=== PATIENT | male | born 1985 | race Caucasian/White ===

== ENCOUNTER 2020-09-17 09:06 | Outpatient (CLI) | payer BC ==
[2020-09-17 09:30] LABS: HCT - HEMATOCRIT 45.9 % (42.0-52.0); HGB - HEMOGLOBIN 15.5 g/dL (14.0-18.0); MEAN CORPUSCULAR HEMOGLOBIN 29.8 pg (27.0-31.0); MEAN CORPUSCULAR HGB CONC 33.8 g/dL (32.0-36.0); MEAN CORPUSCULAR VOLUME 88.3 fL (80.0-94.0); MEAN PLATELET VOLUME 9.8 fL (7.4-11.4); RED BLOOD COUNT 5.2 10^6/uL (4.70-6.10); RED CELL DISTRIBUTION WIDTH 12.5 % (12.0-15.0)
[2020-09-17 09:36] LABS: CALCIUM 9.2 mg/dL (8.5-10.3); CREATININE 1.2 mg/dL (0.6-1.2); POTASSIUM 4.2 mmol/L (3.5-5.0)
[2020-09-17 09:41] LABS: PROTEIN/CREATININE RATIO,URINE 0.1 (<=0.2)
== END 2020-09-17 09:07 | disposition home or self-care (01) ==
LOC: LAB 09:06
PROVIDERS: ATTEND Internal Medicine Nephrology
DX: N05.9 Unspecified nephritic syndrome with unspecified morphologic changes (principal); D70.9 Neutropenia, unspecified; D63.1 Anemia in chronic kidney disease; R80.9 Proteinuria, unspecified
CPT/HCPCS: 36415; 80048; 82570; 84156; 85027

== ENCOUNTER 2020-09-20 13:17 | Outpatient (CLI) | payer BC ==
--- NOTE | 2020-09-20 15:41 | CT Report ---
PROCEDURE: Abdomen/Pelvis WO INDICATIONS: HEMATURIA TECHNIQUE: Noncontrast 5 mm thick sections acquired from the diaphragms to the symphysis. 5 mm coronal and sagi ttal reformats were then performed. For radiation dose reduction, the following was used: automated exposure control, adjustment of mA and/or kV according to patient size. COMPARISON: None. FINDINGS: Image quality: Excellent. ABDOMEN: These images demonstrate numerous hepatic and renal cysts of varying size and complexity, findings co nsistent with autosomal dominant polycystic kidney disease. The largest renal cyst on the right measu res approximately 7 cm. The largest renal cyst on the left measures approximately 4 cm. In the absenc e of IV contrast evaluation of the cysts and adjacent renal parenchyma is limited. There is no hydrou reteronephrosis or urinary tract calculus demonstrated. The urinary bladder is unremarkable. The remaining unenhanced solid abdominal viscera are within normal limits. No abnormally dilated or o bviously thickened loop of bowel. No pericolonic or mesenteric inflammatory changes. Nonaneurysmal ab dominal aorta. No threshold enlarged retroperitoneal, pelvic, or inguinal lymph node. Degenerative changes L5-S1. No acute or suspicious osseous lesion. Included portions of the lung bases are clear. IMPRESSION: Findings consistent with autosomal dominant polycystic kidney disease. Renal protocol contrast enhanced CT or MRI should be considered for further evaluation of the cysts a nd renal parenchyma to exclude a suspicious complex cyst or solid mass, given the hematuria. Reviewed by: Jose Daniel Morrell MD on 09/20/2020 3:40 PM PDT Approved by: Jose Daniel Morrell MD on 09/20/2020 3:40 PM PDT Station ID: [id number]
== END 2020-09-20 13:18 | disposition home or self-care (01) ==
LOC: DI 13:17
PROVIDERS: ATTEND Specialist
DX: R31.9 Hematuria, unspecified (principal); Q61.2 Polycystic kidney, adult type

== ENCOUNTER 2020-11-17 08:00 | Outpatient (CLI) | payer BC | END 2020-11-17 23:59 | disposition home or self-care (01) | LOC: LAB.N 08:00 | PROVIDERS: ATTEND Family Medicine | DX: D49.4 Neoplasm of unspecified behavior of bladder (principal); R30.0 Dysuria | CPT/HCPCS: 87086 ==

== ENCOUNTER 2020-12-08 05:05 | Emergency (ER) | payer BC ==
--- OUTSIDE RECORDS SUMMARY | 2020-12-08 05:09 | EXTERNAL MEDICAL SUMMARY RPT | Continuity of Care Document ---
:1985 Demographics Phone Unavailable Preferred Language Wolof Marital Status Unknown Protestant Affiliation Unknown Race Unknown Ethnic Group Unknown Author Organization [place] Address [address] [phone] Phone Care Team Providers Name Role Phone Horras Unavailable Unavailable Horras Unavailable Unavailable Allergies Encounters Medications date description facility [id number] Trazodone Hydrochloride 50 MG Oral [facility] [id number] Trazodone Hydrochloride 50 MG Oral [facility] 02456251 Phenazopyridine hydrochloride 200 MG Or al [facility] 57256966 Phenazopyridine hydrochloride 200 MG Or al [facility] [id number] 24 HR Oxybutynin chloride 10 MG Extende d [facility] [id number] Phenazopyridine hydrochloride 200 MG Or al [facility] [id number] Acetaminophen 325 MG / Oxycodone Hydroc hloride 5 MG [facility] Oral Tablet 25322398 24 HR Oxybutynin chloride 10 MG Extende d Release [facility] 06550101 Phenazopyridine hydrochloride 200 MG Or al [facility] 25660605 Acetaminophen 325 MG / Oxycodone Hydroc hloride 5 MG [facility] Oral Tablet 55043771 Trazodone Hydrochloride 50 MG Oral [facility] 37549596 atomoxetine 40 MG [facility] 68322286 Trazodone Hydrochloride 50 MG Oral [facility] 59686591 atomoxetine 40 MG [facility] 30682176 24 HR Methylphenidate Hydrochloride 36 MG [facility] Release Tablet 21838171 Oxycodone Hydrochloride 5 MG Oral [facility] 73461735 24 HR Methylphenidate Hydrochloride 36 MG [facility] Release Tablet 93599245 Oxycodone Hydrochloride 5 MG Oral [facility] 47909654 12 HR Bupropion Hydrochloride 100 MG Ex tended [facility] Tablet 92167251 Trazodone Hydrochloride 50 MG Oral [facility] 91343016 atomoxetine 40 MG Oral [facility] 38595866 Lisinopril 20 MG Oral Tablet [facility] 41914194 24 HR Methylphenidate Hydrochloride 36 MG [facility] Release Tablet [id number] 12 HR Bupropion Hydrochloride 100 MG Ex tended [facility] Tablet 07226527 Trazodone Hydrochloride 50 MG Oral [facility] 26865829 atomoxetine 40 MG Oral Capsule [facility] 60245804 Lisinopril 20 MG Oral Tablet [facility] 98348888 24 HR Methylphenidate Hydrochloride 36 MG [facility] Release Tablet Problems date description facility [id number] Urinary tract infection, site not [facility] [id number] Malignant neoplasm of bladder, unspecif [facility] [id number] Encounter for screening for other viral diseases [facility] [id number] Contact with and (suspected) exposure t o [address] [id number] Urinary tract infection, site not speci [facility] [id number] Sleep apnea, unspecified [facility] [id number] Other specified anxiety disorders [facility] [id number] Hyperglycemia, unspecified [facility] ital [id number] Essential (primary) hypertension [facility] Procedures date description facility [id number] [facility] [id number] [facility] [id number] [facility] [id number] [facility] [id number] [facility] [id number] [facility] [id number] [facility] [id number] [facility] [id number] [facility] [id number] [facility] [id number] [facility] [id number] [facility] [id number] [facility] [id number] [facility] [id number] [facility] [id number] [facility] 47132274 [facility] 91118197 [facility] [id number] [facility] [id number] [facility] [id number] [facility] 07593805 [facility] [id number] [facility] 32190736 [facility] 88266849 [facility] Results Vital Signs date measurement value source [id number] weight_standard 141.78 lb [id number] weight_metric 64.31 kg 20200920 temperature_standard 96.2 F 20200920 temperature_metric 35.67 C 20200920 respiration_rate 16 /min 20200920 height_standard 77 in [id number] height_metric 195.58 cm 20200920 heart_rate 62 /min 20200920 BP_systolic 122 mm[Hg] 20200920 BP_diastolic 66 mm[Hg] 20200920 BMI 37.0 kg/m2 20200926 weight_standard 136.08 lb 20200926 weight_metric 61.72 kg 20200926 height_standard 77 in 20200926 height_metric 195.58 cm 20200926 BP_systolic 145 mm[Hg] 20200926 BP_diastolic 94 mm[Hg] 20200926 BMI 35.5 kg/m2 20201003 temperature_standard 97.5 F 20201003 temperature_metric 36.39 C 20201003 heart_rate 86 /min 20201005 weight_standard 136.08 lb 20201005 weight_metric 61.72 kg 20201005 temperature_standard 97.6 F 20201005 temperature_metric 36.44 C 20201005 respiration_rate 14 /min 20201005 height_standard 77 in 20201005 height_metric 195.58 cm 20201005 heart_rate 65 /min 20201005 BP_systolic 120 mm[Hg] 20201005 BP_diastolic 82 mm[Hg] 20201005 BMI 35.5 kg/m2 20201108 weight_standard 138 lb 20201108 weight_metric 62.6 kg 20201108 temperature_standard 97.3 F 20201108 temperature_metric 36.28 C 20201108 respiration_rate 16 /min 20201108 height_standard 77 in 20201108 height_metric 195.58 cm 20201108 heart_rate 78 /min 20201108 BP_systolic 130 mm[Hg] 20201108 BP_diastolic 68 mm[Hg] 20201108 BMI 36.1 kg/m2 20201120 weight_standard 127.01 lb 20201120 weight_metric 57.61 kg 20201120 temperature_standard 98.4 F 20201120 temperature_metric 36.89 C 20201120 respiration_rate 20 /min 20201120 height_standard 77 in 20201120 height_metric 195.58 cm 10613153 heart_rate 80 /min 20201120 BP_systolic 125 mm[Hg] 20201120 BP_diastolic 91 mm[Hg] 20201120 BMI 33.2 kg/m2 20201126 weight_standard 136.53 lb 20201126 weight_metric 61.93 kg 20201126 temperature_standard 97.1 F 20201126 temperature_metric 36.17 C 20201126 respiration_rate 18 /min 20201126 height_standard 77 in 20201126 height_metric 195.58 cm 20201126 heart_rate 103 /min 20201126 BP_systolic 135 mm[Hg] 20201126 BP_diastolic 93 mm[Hg] 20201126 BMI 35.6 kg/m2 20201127 weight_standard 136.08 lb 20201127 weight_metric 61.72 kg 20201127 temperature_standard 98.8 F 20201127 temperature_metric 37.11 C 20201127 respiration_rate 16 /min 20201127 height_standard 77 in 20201127 height_metric 195.58 cm 20201127 heart_rate 108 /min 20201127 BP_systolic 154 mm[Hg] 20201127 BP_diastolic 98 mm[Hg] 20201127 BMI 35.5 kg/m2
--- OUTSIDE RECORDS SUMMARY | 2020-12-08 05:11 | EXTERNAL MEDICAL SUMMARY RPT | Continuity of Care Document ---
:1985 Demographics Phone Unavailable Preferred Language Tajik Marital Status Unknown Alevism Affiliation Unknown Race Unknown Ethnic Group Unknown Author Organization [place] Address [address] [phone] Phone Care Team Providers Name Role Phone Horras Unavailable Unavailable Horras Unavailable Unavailable Allergies Encounters Medications date description facility [id number] Trazodone Hydrochloride 50 MG Oral [facility] 79465062 Trazodone Hydrochloride 50 MG Oral [facility] 62687960 Phenazopyridine hydrochloride 200 MG Or al [facility] 00049151 Phenazopyridine hydrochloride 200 MG Or al [facility] 72006195 24 HR Oxybutynin chloride 10 MG Extende d [facility] 66855987 Phenazopyridine hydrochloride 200 MG Or al [facility] 95013211 Acetaminophen 325 MG / Oxycodone Hydroc hloride 5 MG [facility] Oral Tablet 29631150 24 HR Oxybutynin chloride 10 MG Extende d Release [facility] 03296462 Phenazopyridine hydrochloride 200 MG Or al [facility] 61781242 Acetaminophen 325 MG / Oxycodone Hydroc hloride 5 MG [facility] Oral Tablet 09603532 Trazodone Hydrochloride 50 MG Oral [facility] 98412356 atomoxetine 40 MG [facility] 10284525 Trazodone Hydrochloride 50 MG Oral [facility] 48481772 atomoxetine 40 MG [facility] 08745397 24 HR Methylphenidate Hydrochloride 36 MG [facility] Release Tablet 74733690 Oxycodone Hydrochloride 5 MG Oral [facility] 67590120 24 HR Methylphenidate Hydrochloride 36 MG [facility] Release Tablet 24602359 Oxycodone Hydrochloride 5 MG Oral [facility] 07583541 12 HR Bupropion Hydrochloride 100 MG Ex tended [facility] Tablet 45127431 Trazodone Hydrochloride 50 MG Oral [facility] 12496049 atomoxetine 40 MG Oral [facility] 45758401 Lisinopril 20 MG Oral Tablet [facility] 64651174 24 HR Methylphenidate Hydrochloride 36 MG [facility] Release Tablet 93979972 12 HR Bupropion Hydrochloride 100 MG Ex tended [facility] Tablet 55001584 Trazodone Hydrochloride 50 MG Oral [facility] 74843206 atomoxetine 40 MG Oral Capsule [facility] 84889171 Lisinopril 20 MG Oral Tablet [facility] 48994455 24 HR Methylphenidate Hydrochloride 36 MG [facility] Release Tablet Problems date description facility [id number] Urinary tract infection, site not [facility] 84282960 Malignant neoplasm of bladder, unspecif [facility] [id number] Encounter for screening for other viral diseases [facility] [id number] Contact with and (suspected) exposure t o [address] [id number] Urinary tract infection, site not speci [facility] 95129857 Sleep apnea, unspecified [facility] 51183352 Other specified anxiety disorders [facility] 07394240 Hyperglycemia, unspecified [facility] ital [id number] Essential (primary) hypertension [facility] Procedures date description facility [id number] [facility] [id number] [facility] [id number] [facility] [id number] [facility] [id number] [facility] 53762238 [facility] [id number] [facility] [id number] [facility] [id number] [facility] [id number] [facility] [id number] [facility] [id number] [facility] [id number] [facility] [id number] [facility] [id number] [facility] [id number] [facility] [id number] [facility] [id number] [facility] [id number] [facility] [id number] [facility] [id number] [facility] [id number] [facility] [phone] [facility] [id number] [facility] [id number] [facility] Results Vital Signs date measurement value source [id number] weight_standard 141.78 lb [id number] weight_metric 64.31 kg 20200920 temperature_standard 96.2 F 20200920 temperature_metric 35.67 C 20200920 respiration_rate 16 /min 20200920 height_standard 77 in [id number] height_metric 195.58 cm 20200920 heart_rate 62 /min [...] height_standard 77 in 20201120 height_metric 195.58 cm 36200525 heart_rate 80 /min 20201120 BP_systolic 125 mm[Hg] [...]
[2020-12-08] MEDS ORDERED: HYDROmorphone 1 MG/ML CARPUJECT IVP STA ×2 (05:40→07:17)
[2020-12-08] MEDS ORDERED: ONDANSETRON 4 MG/2 ML VIAL IVP STA (05:40)
[2020-12-08] MEDS ORDERED: SODIUM CHLORIDE 0.9% 1,000 ML IV STA ×2 (05:40→06:04)
[2020-12-08 06:19] LABS: BASOPHILS % (AUTO) 0.3 %; EOSINOPHILS # (AUTO) 0.1 10^3/uL (0.0-0.7); EOSINOPHILS % (AUTO) 0.9 %; HCT - HEMATOCRIT 41.8 % (42.0-52.0); HGB - HEMOGLOBIN 13.7 g/dL (14.0-18.0); LYMPHOCYTES # (AUTO) 1.5 10^3/uL (1.5-3.5); LYMPHOCYTES % (AUTO) 16.5 %; MEAN CORPUSCULAR HGB CONC 32.8 g/dL (32.0-36.0); MEAN CORPUSCULAR VOLUME 88.4 fL (80.0-94.0); MEAN PLATELET VOLUME 9.8 fL (7.4-11.4); MONOCYTES % (AUTO) 10.6 %; NEUTROPHILS # (AUTO) 6.6 10^3/uL (1.5-6.6); NEUTROPHILS % (AUTO) 71.2 %; PLT - PLATELET COUNT 210 10^3/uL (130-450); RED BLOOD COUNT 4.73 10^6/uL (4.70-6.10); RED CELL DISTRIBUTION WIDTH 12.2 % (12.0-15.0); WHITE BLOOD COUNT 9.3 x10^3/uL (4.8-10.8)
[2020-12-08 06:31] LABS: ALBUMIN 3.7 g/dL (3.2-5.5); ALBUMIN/GLOBULIN RATIO 1.1 (1.0-2.2); BILIRUBIN,TOTAL 0.8 mg/dL (0.2-1.0); CALCIUM 9.2 mg/dL (8.5-10.3); CREATININE 1.6 mg/dL (0.6-1.2); POTASSIUM 3.6 mmol/L (3.5-5.0)
[2020-12-08] MEDS ORDERED: IOVERSOL 320 100 ML VIAL IVP ONE ×2 (06:35→07:34)
--- NOTE | 2020-12-08 06:37 | ED Physician Documentation ---
History of Present Illness - Stated complaint Stated Complaint: ABD PX/MALE /DIARRHEA - Chief complaint Chief Complaint: Abd Pain - History obtained from History obtained from: Patient - Additonal information Additional information: 35-year-old man with past medical history of polycystic kidney disease status post bladder surgery for malignant tumor in September presents with chronic hematuria alongside some new onset abdominal pain, nausea vomiting and diarrhea over the past 2 to 3 days, progressively worsening, localized to the bilateral upper quadrant and radiating diffusely to the entire abdomen, 9 out of 10 upon arrival and improved after pain medication. He states that there is blood in his vomitus and there may be blood in his stool but he is unsure because he usually urinates at the same time and has chronic hematuria from the surgery. Denies fever, sick contacts, rash, back pain. Review of Systems Ten Systems: 10 systems reviewed and negative Constitutional: denies: Fever, Chills GI: reports: Abdominal Pain, Nausea, Vomiting, Diarrhea PD PAST MEDICAL HISTORY - Past Medical History Past Medical History: Yes Cardiovascular: Hypertension : Other Other Past Medical History: Polycystic Kidney disease, bladder tumor - Past Surgical History Past Surgical History: Yes - Present Medications Home Medications: Ambulatory Orders Medication Instructions Recorded Confirmed Ciprofloxacin HCl 1 tablet PO BID 10 Days #20 tablet 12/08/20 Ondansetron Odt [Zofran] 4 mg TL Q6H PRN #10 tablet 12/08/20 Oxycodone HCl/Acetaminophen 1 each PO Q4H PRN #10 tablet 12/08/20 [Percocet 10-325 mg Tablet] metroNIDAZOLE [Flagyl] 500 mg PO TID #30 tablet 12/08/20 - Allergies Allergies/Adverse Reactions: Allergies Allergy/AdvReac Type Severity Reaction Status Date / Time No Known Drug Allergies Allergy Verified 12/08/20 05:28 - Social History Does the pt smoke?: No Smoking Status: Never smoker Does the pt drink ETOH?: No Does the pt have substance abuse?: No - Immunizations Immunizations are current?: Yes PD ED PE NORMAL - Vitals Vital signs reviewed: Yes - General General: Alert and oriented X 3, No acute distress, Well developed/nourished - HEENT HEENT: Atraumatic, PERRL, EOMI - Neck Neck: Supple, no meningeal sign - Cardiac Cardiac: RRR - Respiratory Respiratory: No respiratory distress, Clear bilaterally - Abdomen Abdomen: Other (diffusely tender to palpation without guarding or rebound) - Derm Derm: Normal color - Extremities Extremities: No deformity - Neuro Neuro: Alert and oriented X 3 - Psych Psych: Normal mood, Normal affect Results - Vitals Vitals: Vital Signs - 24 hr 12/08/20 12/08/20 05:16 07:26 Temperature 37.1 C Heart Rate 107 H 93 Respiratory 20 18 Rate Blood Pressure 146/101 H 136/96 H O2 Saturation 97 95 Oxygen O2 Source Room air - Labs Labs: Laboratory Tests 12/08/20 12/08/20 12/08/20 05:57 05:57 07:00 WBC 9.3 RBC 4.73 Hgb 13.7 L Hct 41.8 L MCV 88.4 MCH 29.0 MCHC 32.8 RDW 12.2 Plt Count 210 MPV 9.8 Neut # (Auto) 6.6 Lymph # (Auto) 1.5 Menard # (Auto) 1.0 Eos # (Auto) 0.1 Baso # (Auto) 0.0 Absolute Nucleated RBC 0.00 Nucleated RBC % 0.0 Sodium 136 Potassium 3.6 Chloride 99 L Carbon Dioxide 24 Anion Gap 13.0 BUN 19 Creatinine 1.6 H Estimated GFR (MDRD) 49 L Glucose 114 H Calcium 9.2 Total Bilirubin 0.8 AST 20 ALT 25 Alkaline Phosphatase 62 Total Protein 7.0 Albumin 3.7 Globulin 3.3 Albumin/Globulin Ratio 1.1 Lipase 23 Urine Color DK. ORANGE Urine Clarity SL. CLOUDY Urine pH 5.5 Ur Specific [place] 1.020 Urine Protein >=300 H Urine Glucose (UA) NEGATIVE Urine Ketones TRACE Urine Occult Blood LARGE H Urine Nitrite NEGATIVE Urine Bilirubin NEGATIVE Urine Urobilinogen 0.2 (NORMAL) Ur Leukocyte Esterase TRACE H Urine RBC TNTC H Urine WBC 4-5 Ur Squamous Epith Cells RARE Squamous Urine Bacteria Rare Urine Yeast PRESENT Ur Microscopic Review INDICATED Urine Culture Comments INDICATED PD MEDICAL DECISION MAKING - ED course ED course: Nausea, vomiting, diarrhea,, improved after Dilaudid and Zofran. jessy c/w mild dehydration. Will obtain CT to evaluate further. Departure - Departure Disposition: 01 Home, Self Care Clinical Impression: Colitis, Nausea and vomiting, Diarrhea, JESSY (acute kidney injury) Instructions: ED Diarrhea Bacterial Prescriptions: Ciprofloxacin HCl 1 tablet PO BID 10 Days #20 tablet metroNIDAZOLE [Flagyl] 500 mg PO TID #30 tablet Oxycodone HCl/Acetaminophen [Percocet 10-325 mg Tablet] 1 each PO Q4H PRN #10 tablet PRN Reason: Pain Ondansetron Odt [Zofran] 4 mg TL Q6H PRN #10 tablet PRN Reason: Nausea / Vomiting Comments: You were seen in the emergency department for nausea, vomiting and diarrhea. Your lab work is showing mild dehydration with creatinine of 1.6 on kidney function testing. Your CT showed segmental colitis involving the ascending colon, which means that you have an infection in your intestines. This is likely causing your symptoms. Your urine had some blood and white blood cells in it which could possibly be inflammatory versus infectious. The antibiotics I am prescribing will cover urinary tract infection in addition to colitis. Ple ase follow-up with your primary doctor as well as your urologist this week. Return to the emergency department if you experience any new or worsening symptoms or have other concerns.
[2020-12-08 07:15] LABS: GLUCOSE, URINE (UA) NEGATIVE (NEGATIVE); KETONES,URINE (UA) TRACE mg/dL (NEGATIVE); LEUKOCYTE ESTERASE, URINE TRACE (NEGATIVE); NITRITE,URINE NEGATIVE (NEGATIVE); OCCULT BLOOD,URINE LARGE (NEGATIVE); PH,URINE 5.5 PH (5.0-7.5); PROTEIN,URINE >=300 mg/dL (NEGATIVE); UROBILINOGEN,URINE 0.2 (NORMAL) E.U./dL (NORMAL)
[2020-12-08 07:24] LABS: BACTERIA,URINE Rare /HPF (None Seen); BILIRUBIN,URINE NEGATIVE (NEGATIVE); CLARITY,URINE SL. CLOUDY (CLEAR); ICTOTEST,URINE NEGATIVE; RBC,URINE TNTC /HPF (0-5); SQUAMOUS EPITHELIAL CELL,UR RARE Squamous (<= Few); YEAST,URINE PRESENT
[2020-12-08 09:15] VITALS: BP 135/91
--- NOTE | 2020-12-08 10:12 | CT Report ---
PROCEDURE: Abdomen/Pelvis W INDICATIONS: severe diffuse abd pain, hx bladder surg CONTRAST: IV CONTRAST: Optiray 320 ml: 100 PO CONTRAST: *NO PO CONTRAST TECHNIQUE: After the administration of nonionic contrast, 5 mm thick sections acquired from the diaphragms to th e symphysis. 5 mm thick coronal and sagittal reformats were acquired. For radiation dose reduction, the following was used: automated exposure control, adjustment of mA and/or kV according to patient size. COMPARISON: Prior CT 09/21/2020 reviewed. Appears normal. FINDINGS: Image quality: Excellent. ABDOMEN: Lung bases: Lung bases are clear. Heart size is normal. Solid organs: Liver and spleen are normal in size and enhancement except for numerous water density simple appearing hepatic cysts. Gallbladder appears normal Biliary system is non dilated. Pancreas enhances normally. No adrenal nodules. Kidneys demonstrate normal size and enhancement, without hy dronephrosis. Numerous renal cortical cysts are present. The combined appearance is consistent with adult polycystic hepatorenal disease. Peritoneum and bowel: Bowel loops demonstrate normal wall thickness and caliber. No free fluid or a ir. Nodes and vessels: No retroperitoneal or mesenteric adenopathy by size criteria. Aorta and inferior vena cava are normal in size. Miscellaneous: No ventral hernias. PELVIS: Genitourinary: Bladder wall thickness is normal except for anteriorly superiorly there is bladder wa ll thickening and adjacent mild edema.. Miscellaneous: No inguinal hernias or adenopathy. There is abnormal colonic wall thickening involvi ng the cecum and proximal ascending colon. This area appeared entirely normal on the recent prior CT scan. Bones: No suspicious bony lesions. No vertebral body compression fractures. IMPRESSION: The clinical history indicates bladder surgery reportedly for some form of bladder neopl asm. Postoperative changes are present in that area as discussed above. No malignant appearing findings are currently present without benefit [facility]. Colitis is the presumed cause at the cecum and proximal ascen ding colon considering the normality of appearance of that area on that prior CT scan. Reviewed by: Raúl Conley MD on 12/08/2020 9:11 AM JAMES Approved by: Raúl Conley MD on 12/08/2020 9:11 AM JAMES Station ID: [id number]
== END 2020-12-08 09:17 | disposition home or self-care (01) ==
LOC: ED 05:05
DX: K52.9 Noninfective gastroenteritis and colitis, unspecified (principal); N17.9 Acute kidney failure, unspecified; R31.9 Hematuria, unspecified; E86.0 Dehydration; Q61.3 Polycystic kidney, unspecified; I10 Essential (primary) hypertension; Z85.51 Personal history of malignant neoplasm of bladder
CPT/HCPCS: 36415; 74177; 80053; 81001; 83690; 85025; 87086; 96361; 96374; 96375; 96376; 99284; J1170; Q9967; 81003

== ENCOUNTER 2021-04-15 17:02 | Emergency (ER) | payer BC ==
--- NOTE | 2021-04-15 17:26 | ED Physician Documentation ---
PD HPI CHEST PAIN - Stated complaint Stated Complaint: CHEST PX - Chief complaint Chief Complaint: Cardiac - History obtained from History obtained from: Patient - History of Present Illness Timing - onset: How many hours ago (07/07), Today Timing - onset during: Exertion (he states he has been doing house and yard chores the past few days. Today was moving/lifting a reclining chair and had abrupt onset of left sharp chest pain, associated with lightheaded. He says he got pale and sweaty when pain started and near syncope.) Timing - details: Abrupt onset, Still present Quality: Aching, Sharp, Pain. No: Tearing, Stabbing Location: Left chest Radiation: Back, Left upper extremity Worsened by: Movement, Palpation (left pectoral area). No: Exertion, Inspiration Associated symptoms: Shortness of air, Diaphoresis, Nausea, Feeling faint / dizzy Similar symptoms before: Has not had sx before Recently seen: Not recently seen Review of Systems Constitutional: denies: Fever, Chills Nose: denies: Rhinorrhea / runny nose, Congestion Throat: denies: Sore throat Cardiac: denies: Pedal edema, Calf pain Respiratory: denies: Cough GI: denies: Abdominal Pain, Nausea, Vomiting Skin: denies: Rash, Lesions Neurologic: reports: Generalized weakness. denies: Focal weakness, Numbness PD PAST MEDICAL HISTORY - Past Medical History Cardiovascular: Hypertension Respiratory: None Neuro: None Endocrine/Autoimmune: None : Other - Past Surgical History Past Surgical History: Yes - Present Medications Home Medications: Ambulatory Orders Medication Instructions Recorded Confirmed Ciprofloxacin HCl 1 tablet PO BID 10 Days #20 tablet 12/08/20 Ondansetron Odt [Zofran] 4 mg TL Q6H PRN #10 tablet 12/08/20 Oxycodone HCl/Acetaminophen 1 each PO Q4H PRN #10 tablet 12/08/20 [Percocet 10-325 mg Tablet] metroNIDAZOLE [Flagyl] 500 mg PO TID #30 tablet 12/08/20 HYDROcod/ACETAM 5/325 [[place]rae [place] 5/325] 1 - 2 ea PO Q6H PRN #15 tablet 04/15/21 - Allergies Allergies/Adverse Reactions: Allergies Allergy/AdvReac Type Severity Reaction Status Date / Time No Known Drug Allergies Allergy Verified 04/15/21 17:10 - Social History Does the pt smoke?: No Smoking Status: Never smoker Does the pt drink ETOH?: No Does the pt have substance abuse?: No - Family History Family history: reports: CAD. denies: Aortic aneursym, Aortic dissection - Immunizations Immunizations are current?: Yes PD ED PE NORMAL - Vitals Vital signs reviewed: Yes - General General: Alert and oriented X 3, Well developed/nourished, Other (appears in pain, pale and sweaty. ) - Neck Neck: Supple, no meningeal sign, No adenopathy - Cardiac Cardiac: RRR, No murmur - Respiratory Respiratory: Clear bilaterally, Other (left pectoral area with muscular tenderness. No rash nor sores. ) - Abdomen Abdomen: Soft, Non tender - Back Back: No CVA TTP - Derm Derm: Normal color, Warm and dry - Extremities Extremities: No edema, No calf tenderness / cord - Neuro Neuro: Alert and oriented X 3, No motor deficit, Normal speech Results - Vitals Vitals: Vital Signs - 24 hr 04/15/21 04/15/21 04/15/21 17:10 17:52 19:04 Temperature 36.9 C Heart Rate 103 H 91 82 Respiratory 19 20 14 Rate Blood Pressure 138/100 H 130/91 H 135/82 H O2 Saturation 98 96 99 Oxygen O2 Source Room air - EKG (time done) 17:10 Rate: Rate (enter#) (93) Rhythm: NSR [place]: Normal Intervals: Normal [place] QRS: Normal Ischemia: Normal ST segments. No: ST elevation c/w ischemia, ST depression - Labs Labs: Laboratory Tests 04/15/21 04/15/21 04/15/21 17:20 17:20 17:20 WBC 9.0 RBC 5.28 Hgb 16.0 Hct 46.5 MCV 88.1 MCH 30.3 MCHC 34.4 RDW 12.5 Plt Count 306 MPV 9.7 Neut # (Auto) 5.3 Lymph # (Auto) 3.0 [place] # (Auto) 0.5 Eos # (Auto) 0.1 Baso # (Auto) 0.1 Absolute Nucleated RBC 0.00 Nucleated RBC % 0.0 Sodium 135 Potassium 3.9 Chloride 101 Carbon Dioxide 24 Anion Gap 10.0 BUN 22 H Creatinine 1.3 H Estimated GFR (MDRD) 62 L Glucose 110 H Calcium 9.5 Total Bilirubin 1.0 AST 31 ALT 38 Alkaline Phosphatase 62 Troponin I High Sens 2.9 Total Protein 7.5 Albumin 4.5 Globulin 3.0 Albumin/Globulin Ratio 1.5 Lipase 31 - Rads (name of study) chest xray Radiology: Prelim report reviewed (normal), See rad report PD MEDICAL DECISION MAKING - ED course Complexity details: reviewed results, considered differential, d/w patient Departure - Departure Disposition: 01 Home, Self Care Clinical Impression: Left-sided chest pain Condition: Stable Record reviewed to determine appropriate education?: Yes Instructions: ED Strain Chest Wall Follow-Up: KRYSTAL LONGORIA MD [Primary Care Provider] - Prescriptions: HYDROcod/ACETAM 5/325 [Mcrae [place] 5/325] 1 - 2 ea PO Q6H PRN #15 tablet PRN Reason: Pain Comments: Your EKG, chest x-ray, blood tests are good without any signs of heart attack or heart injury, collapsed lung or pneumonia, blood sugar abnormality or electrolyte problems. Your heart rhythm was normal here as well. Your symptoms were certainly concerning for something more significant but no findings on the testing. You do have chest wall tenderness so presume a muscle strain that also affected your blood pressure temporarily causing the sweating and lightheadedness etc. Tylenol or ibuprofen as needed for pains. Add hydrocodone if needed for worse pain. I would anticipate improvement in the chest muscle pain over the next few days. Activity as tolerated regarding work lifting another activity. Recheck if not improved over the next several days and return if worse or other symptoms. [facility] in [place]. Discharge Date/Time: 04/15/21 19:05
[2021-04-15 17:35] LABS: BASOPHILS # (AUTO) 0.1 10^3/uL (0.0-0.1); BASOPHILS % (AUTO) 0.6 %; EOSINOPHILS # (AUTO) 0.1 10^3/uL (0.0-0.7); EOSINOPHILS % (AUTO) 1.1 %; HCT - HEMATOCRIT 46.5 % (42.0-52.0); LYMPHOCYTES % (AUTO) 33.1 %; MEAN CORPUSCULAR HEMOGLOBIN 30.3 pg (27.0-31.0); MEAN CORPUSCULAR HGB CONC 34.4 g/dL (32.0-36.0); MEAN CORPUSCULAR VOLUME 88.1 fL (80.0-94.0); MEAN PLATELET VOLUME 9.7 fL (7.4-11.4); MONOCYTES # (AUTO) 0.5 10^3/uL (0.0-1.0); MONOCYTES % (AUTO) 5.7 %; NEUTROPHILS # (AUTO) 5.3 10^3/uL (1.5-6.6); NEUTROPHILS % (AUTO) 59.3 %; PLT - PLATELET COUNT 306 10^3/uL (130-450); RED BLOOD COUNT 5.28 10^6/uL (4.70-6.10); RED CELL DISTRIBUTION WIDTH 12.5 % (12.0-15.0)
[2021-04-15] MEDS ORDERED: KETOROLAC 30 MG/ML VIAL IVP STA (17:38)
[2021-04-15] MEDS ORDERED: ACETAMINOPHEN 325 MG TABLET PO STA (17:38)
[2021-04-15] MEDS ORDERED: SODIUM CHLORIDE 0.9% 1,000 ML IV STA (17:38)
[2021-04-15 17:50] LABS: ALBUMIN 4.5 g/dL (3.2-5.5); ALBUMIN/GLOBULIN RATIO 1.5 (1.0-2.2); CALCIUM 9.5 mg/dL (8.5-10.3); CREATININE 1.3 mg/dL (0.6-1.2); POTASSIUM 3.9 mmol/L (3.5-5.0); TOTAL PROTEIN 7.5 g/dL (6.7-8.2)
--- NOTE | 2021-04-15 17:52 | XRAY Report ---
PROCEDURE: Chest 1 View X-Ray INDICATIONS: Chest pain TECHNIQUE: One view of the chest was acquired. COMPARISON: None FINDINGS: Surgical changes and devices: None. Lungs and pleura: No pleural effusions or pneumothorax. Lungs are clear. Mediastinum: Mediastinal contours appear normal. Heart size is normal. Bones and chest wall: No suspicious bony lesions. Overlying soft tissues appear unremarkable. IMPRESSION: No acute cardiopulmonary findings Reviewed by: Yash Craig MD on 04/15/2021 4:50 PM AKDT Approved by: Yash Craig MD on 04/15/2021 4:50 PM AKDT Station ID: [id number]
[2021-04-15 19:05] VITALS: BP 135/82
== END 2021-04-15 19:05 | disposition home or self-care (01) ==
LOC: ED 17:02
DX: R07.89 Other chest pain (principal); I10 Essential (primary) hypertension
CPT/HCPCS: 36415; 71045; 80053; 83690; 84484; 85025; 93005; 96374; 99284; A9270

== ENCOUNTER 2021-09-24 12:23 | Emergency (ER) | payer BC, OTHER ==
--- NOTE | 2021-09-24 12:58 | ED Physician Documentation ---
PD HPI FOCAL NEURO - Stated complaint Stated Complaint: R SIDE,LEG WEAKNESS - Chief complaint Chief Complaint: Neuro - History obtained from History obtained from: Patient - History of Present Illness Timing - onset: How many days ago (5-6) Timing - duration: Days (5-6) Timing - details: Gradual onset, Still present Severity of deficit: Moderate Weakness: Hand, Leg, Foot, Right Numbness: Hand, Leg, Foot, Right Associated symptoms: Other (He states he did have a "stomach flu" about 2 weeks ago with nausea vomiting and diarrhea for about a day to day and a half and then improved.). No: Headache, Nausea / vomiting, Syncope, Head injury Baseline status: positive: A&OX3, ambulatory, indep Similar symptoms before: Has not had sx before Recently seen: Clinic (Seen by neurology in [facility] for vertigo in the past. Had physical therapy ordered and has been getting that.) Review of Systems Constitutional: denies: Fever, Chills Nose: denies: Rhinorrhea / runny nose, Congestion Throat: denies: Sore throat Respiratory: denies: Cough GI: reports: Nausea, Vomiting (1 1/2 weeks ago for 1-2 days.), Diarrhea. denies: Abdominal Pain Skin: denies: Rash, Lesions Neurologic: reports: Generalized weakness (He does feel general weakness on both sides but predominantly on the right progressing over 5 to 6 days, initially right leg, now also right arm.). denies: Altered mental status, Headache, Head injury PD PAST MEDICAL HISTORY - Past Medical History Past Medical History: Yes Cardiovascular: Hypertension Respiratory: None Neuro: None Endocrine/Autoimmune: None : Other Psych: Depression, ADD/ADHD - Past Surgical History Past Surgical History: Yes - Allergies Allergies/Adverse Reactions: Allergies Allergy/AdvReac Type Severity Reaction Status Date / Time No Known Drug Allergies Allergy Verified 09/24/21 12:30 - Social History Does the pt smoke?: No Smoking Status: Never smoker Does the pt drink ETOH?: No Does the pt have substance abuse?: No - Immunizations Immunizations are current?: Yes PD ED PE NORMAL - Vitals Vital signs reviewed: Yes - General General: Alert and oriented X 3, No acute distress, Well developed/nourished - HEENT HEENT: Atraumatic, PERRL, EOMI, Pharynx benign - Neck Neck: Supple, no meningeal sign, No adenopathy - Cardiac Cardiac: RRR, No murmur - Respiratory Respiratory: No respiratory distress, Clear bilaterally - Abdomen Abdomen: Soft, Non tender - Male Male : Deferred - Rectal Rectal: Deferred - Back Back: No CVA TTP - Derm Derm: Normal color, Warm and dry - Neuro Neuro: Alert and oriented X 3, 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 Mild to moderate weakness in the right arm. Faint weakness perhaps of the left arm and leg.Decrease sensation to touch and pinprick on the right leg and some in the right arm.) Eye Opening: Spontaneous Motor: Obeys Commands Verbal: Oriented GCS Score: 15 - Psych Psych: Normal mood, Normal affect NIHSS - Level of Consciousness Level of consciousness: (0) Alert, Keenly responsive LOC Questions: (0) Answers both Q's correct LOC Commands: (0) Performs both correctly - Gaze Best Gaze: (0) Normal - Visual Visual: (0) No loss - Facial Palsy Facial Palsy: (0) Normal, symmetrical movement - Motor Arms (both separate) Motor Arm (right): (1) Drift Motor Arm (left): (0) No drift - Motor Legs (both separate) Motor Leg (right): (1) Drift Motor Leg (left): (0) No drift - Limb Ataxia Limb Ataxia: (0) Absent - Sensory Sensory: (1) Qnzu-hp-onnepcks loss - Best Language Best Language: (0) No aphasia - Dysarthria Dysarthria: (0) Normal - Extinction and Inattention (formally neg Extinction and inattention: (0) No abnormality - Total Score/Results Total Score/Result: 3 Results - Vitals Vitals: Vital Signs - 24 hr 09/24/21 09/24/21 09/24/21 12:30 14:33 16:00 Temperature 36.6 C 36.4 C L 36.6 C Heart Rate 100 90 85 Respiratory 18 21 16 Rate Blood Pressure 147/100 H 148/107 H 151/107 H O2 Saturation 99 98 98 09/24/21 09/24/21 18:00 20:00 Temperature 36.4 C L 36.3 C L Heart Rate 88 85 Respiratory 16 16 Rate Blood Pressure 145/95 H 143/92 H O2 Saturation 98 99 Oxygen O2 Source Room air - Labs Labs: Laboratory Tests 09/24/21 09/24/21 09/24/21 12:48 12:48 12:48 WBC 8.6 RBC 5.66 Hgb 16.8 Hct 50.0 MCV 88.3 MCH 29.7 MCHC 33.6 RDW 12.7 Plt Count 321 MPV 10.2 Neut # (Auto) 5.1 Lymph # (Auto) 2.8 [place] # (Auto) 0.6 Eos # (Auto) 0.1 Baso # (Auto) 0.1 Absolute Nucleated RBC 0.00 Nucleated RBC % 0.0 ESR 1 Sodium 136 Potassium 4.1 Chloride 101 Carbon Dioxide 25 Anion Gap 10.0 BUN 21 H Creatinine 1.2 Estimated GFR (MDRD) 68 L Glucose 119 H Calcium 9.3 Magnesium 2.0 Total Bilirubin 0.9 AST 21 ALT 30 Alkaline Phosphatase 62 Total Protein 7.7 Albumin 4.5 Globulin 3.2 Albumin/Globulin Ratio 1.4 Lipase 35 - Rads (name of study) brain MRI Radiology: Prelim report reviewed (No acute process.), See rad report PD MEDICAL DECISION MAKING - ED course Complexity details: re-evaluated patient, considered differential (The patient has had progressive weakness feeling both sides but predominantly on the right over 5 to 6 days. Concern for MS versus bleed or tumor versus Guillain-Marlow or other neurologic disorder), d/w patient, d/w net developer consultant (I talked with neurology at [facility] for his neurologist who thought possible spine MS or atypical Guillain-Marlow may be suspected. Suggest LP and lumbar MRI and possibly IVIG. However we do not have this on formulary and may be more prudent to have transfer for neuro consult.) Departure - Departure Disposition: 02 Transfer Acute Care Hosp Clinical Impression: Right sided weakness, General weakness Condition: Stable Record reviewed to determine appropriate education?: Yes
--- OUTSIDE RECORDS SUMMARY | 2021-09-24 13:09 | EXTERNAL MEDICAL SUMMARY RPT | Continuity of Care Document ---
:1985 Author Organization [facility] Address [address] [place] [address] Phone Allergies No information. Encounters No information. Medications No information. Problems Procedures date description facility [id number] General Physician [facility] [id number] Finding [facility] [id number] Diagnosis [facility] Results No information. Vital Signs date measurement value source [id number] weight_standard 136.08 lb [id number] weight_metric 61.72 kg [id number] respiration_rate 16 /min [id number] height_standard 77 in [id number] height_metric 195.58 cm [id number] heart_rate 97 /min [id number] BP_systolic 132 mm[Hg] [id number] BP_diastolic 79 mm[Hg] [id number] BMI 35.5 kg/m2
[2021-09-24] MEDS ORDERED: SODIUM CHLORIDE 0.9% 1,000 ML IV STA (13:37)
[2021-09-24 13:50] LABS: BASOPHILS # (AUTO) 0.1 10^3/uL (0.0-0.1); BASOPHILS % (AUTO) 0.6 %; EOSINOPHILS # (AUTO) 0.1 10^3/uL (0.0-0.7); EOSINOPHILS % (AUTO) 1.4 %; HGB - HEMOGLOBIN 16.8 g/dL (14.0-18.0); LYMPHOCYTES # (AUTO) 2.8 10^3/uL (1.5-3.5); LYMPHOCYTES % (AUTO) 31.9 %; MEAN CORPUSCULAR HEMOGLOBIN 29.7 pg (27.0-31.0); MEAN CORPUSCULAR HGB CONC 33.6 g/dL (32.0-36.0); MEAN CORPUSCULAR VOLUME 88.3 fL (80.0-94.0); MEAN PLATELET VOLUME 10.2 fL (7.4-11.4); MONOCYTES # (AUTO) 0.6 10^3/uL (0.0-1.0); MONOCYTES % (AUTO) 7.2 %; NEUTROPHILS # (AUTO) 5.1 10^3/uL (1.5-6.6); NEUTROPHILS % (AUTO) 58.6 %; PLT - PLATELET COUNT 321 10^3/uL (130-450); RED BLOOD COUNT 5.66 10^6/uL (4.70-6.10); RED CELL DISTRIBUTION WIDTH 12.7 % (12.0-15.0); WHITE BLOOD COUNT 8.6 x10^3/uL (4.8-10.8)
[2021-09-24 13:58] LABS: ALBUMIN 4.5 g/dL (3.2-5.5); ALBUMIN/GLOBULIN RATIO 1.4 (1.0-2.2); BILIRUBIN,TOTAL 0.9 mg/dL (0.2-1.0); CALCIUM 9.3 mg/dL (8.5-10.3); CREATININE 1.2 mg/dL (0.6-1.2); POTASSIUM 4.1 mmol/L (3.5-5.0); TOTAL PROTEIN 7.7 g/dL (6.7-8.2)
--- NOTE | 2021-09-24 15:51 | MRI Report ---
PROCEDURE: Brain W/O INDICATIONS: Right arm and leg weakness. TECHNIQUE: Noncontrast axial T1 spin echo, axial T2 fast spin echo, sagittal and axial FLAIR, coronal T2 fast sp in echo, axial gradient echo, axial diffusion and ADC through the brain. COMPARISON: None. FINDINGS: No restricted diffusion to indicate a recent ischemia. The major intracranial vascular flow-related s ignal voids are maintained. No abnormal intracranial susceptibility, mass effect, or midline shift. P atent ventricular system and basilar cisterns. Midline structures are normal in configuration. No johanna ss orbital abnormality. Paranasal sinuses and mastoid air cells are predominantly clear. IMPRESSION: No acute or otherwise significant intracranial abnormality. Reviewed by: Jose Daniel Morrell MD on 09/24/2021 3:49 PM PDT Approved by: Jose Daniel Morrell MD on 09/24/2021 3:49 PM PDT Station ID: [id number]
--- NOTE | 2021-09-24 21:16 | ED Physician Documentation ---
ED Addendum - Addendum Addendum: 09/24/21 21:16 Patient is accepted to [facility] by BOZENA Lees, hospitalist. COBRA forms completed. Departure - Departure Disposition: 02 Transfer Acute Care Hosp Clinical Impression: Right sided weakness, General weakness Condition: Stable
[2021-09-24 21:28] LABS: B. PARAPERTUSSIS- RESP PCR PAN NOT DETECTED; B. PERTUSSIS- RESP PCR PANEL NOT DETECTED; C. PNEUMONIAE- RESP PCR PANEL NOT DETECTED; CORONAVIRUS 229E-RESP PCR NOT DETECTED; CORONAVIRUS HKU1-RESP PCR NOT DETECTED; CORONAVIRUS NL63-RESP PCR NOT DETECTED; CORONAVIRUS OC43-RESP PCR NOT DETECTED; HUMAN METAPNEUMOVIRUS NOT DETECTED; INFLUENZA A- RESP PCR PANEL NOT DETECTED; INFLUENZA B - RESP PCR PANEL NOT DETECTED; M. PNEUMONIAE- RESP PCR PANEL NOT DETECTED; PARAINFLUENZA VIRUS 1 NOT DETECTED; PARAINFLUENZA VIRUS 2 NOT DETECTED; PARAINFLUENZA VIRUS 3 NOT DETECTED; PARAINFLUENZA VIRUS 4 NOT DETECTED; RHINOVIRUS/ENTEROVIRUS NOT DETECTED; RSV- RESP PCR PANEL NOT DETECTED; SARS-CoV-2 -RESP PCR PANEL NOT DETECTED
[2021-09-24 22:06] VITALS: BP 148/88
== END 2021-09-24 22:36 | disposition short-term general hospital (02) ==
LOC: ED 12:23
DX: R29.898 Other symptoms and signs involving the musculoskeletal system (principal); R53.1 Weakness; Z20.822 Contact with and (suspected) exposure to COVID-19
CPT/HCPCS: 0202U; 36415; 70551; 80053; 83690; 83735; 85025; 85651; 99284; 99285

== ENCOUNTER 2021-09-24 22:35 | Outpatient (CLI) | payer OTHER | END 2021-09-24 22:36 | disposition short-term general hospital (02) | LOC: EMS 22:35 | PROVIDERS: ATTEND Emergency Medicine | DX: G81.91 Hemiplegia, unspecified affecting right dominant side (principal); R53.1 Weakness | CPT/HCPCS: A0425; A0428 ==

== ENCOUNTER 2022-04-07 11:24 | Emergency (ER) | payer OTHER ==
--- NOTE | 2022-04-07 13:10 | ED Physician Documentation ---
PD HPI FOCAL NEURO - Stated complaint Stated Complaint: NO FEELING IN LEGS - Chief complaint Chief Complaint: Ext Problem - History obtained from History obtained from: Patient - History of Present Illness Timing - onset: How many days ago (2-3) Timing - duration: Days Timing - details: Gradual onset, Still present Severity of deficit: Moderate Weakness: Leg, Foot, Right Numbness: Leg, Foot, Right Associated symptoms: Back pain (ongoing since September). No: Headache, Nausea / vomiting, Head injury Baseline status: positive: Cane. negative: Mildly confused Similar symptoms before: Diagnosis (had onset of back pain and right leg weakness/numbness after an intestinal viral illness and also COVID vaccine in early September. Seen in ER mid September and xferred to [facility] for eval/testing. He states had MRI head/spine, LP/CSF fluid testing, lab testing. Dx with likely transverse myelitis.) Recently seen: Not recently seen (Besides the initial episode in September, he states he had had 2 other times of increased weakness of right leg when he did not feel well once and was very tired another time. Both times, he got oral doses steroids and improved over 1-2 days.), Other (seen September 2021 for initial eval of this with Dx likely transverse myelitis, with excluded Dx of MS, infectious discitis/etc. Responded to high dose steroids for 5 days. Improved to be able to walk with cane after [facility] weeks [facility] Records from these facilities not yet faxed to us) Review of Systems Constitutional: reports: Myalgias. denies: Fever, Chills Nose: reports: Rhinorrhea / runny nose, Congestion Throat: denies: Sore throat Respiratory: denies: Dyspnea, Cough GI: denies: Abdominal Pain, Nausea, Vomiting, Diarrhea : denies: Incontinent Skin: denies: Rash, Lesions Neurologic: reports: Focal weakness (right leg), Headache. denies: Confused, Altered mental status PD PAST MEDICAL HISTORY - Past Medical History Past Medical History: Yes Cardiovascular: Hypertension Respiratory: None Neuro: None Endocrine/Autoimmune: None : Other Psych: Depression, ADD/ADHD Musculoskeletal: Other (Dx possible transverse myelitis versus FND in September with persistent need for cane use and getting regular PT since. ) - Past Surgical History Past Surgical History: Yes - Present Medications Home Medications: Ambulatory Orders Medication Instructions Recorded Confirmed Dexamethasone [Decadron] 60 mg PO DAILY 3 Days #30 tablet 04/07/22 - Allergies Allergies/Adverse Reactions: Allergies Allergy/AdvReac Type Severity Reaction Status Date / Time methylphenidate AdvReac Unknown Verified 04/07/22 11:46 [From [email or web address]] - Social History Does the pt smoke?: No Smoking Status: Never smoker Does the pt drink ETOH?: No Does the pt have substance abuse?: No - Immunizations Immunizations are current?: Yes PD ED PE NORMAL - Vitals Vital signs reviewed: Yes - General General: Alert and oriented X 3, No acute distress, Well developed/nourished - Cardiac Cardiac: RRR, No murmur - Respiratory Respiratory: Clear bilaterally - Abdomen Abdomen: Normal bowel sounds, Soft, Non tender - Male Male : Deferred - Rectal Rectal: Deferred - Back Back: No CVA TTP, Other (no redness, rash nor sores on back. Some tender to palpation around mid lumbar area. ) - Derm Derm: Normal color, Warm and dry - Extremities Extremities: No edema, No calf tenderness / cord, Other (seems weaker on right leg but still able to lift it and general movement. Standing is almost right leg not holding him up. 1+ patellar reflex. ) - Neuro Neuro: Alert and oriented X 3, No motor deficit, Normal speech Results - Vitals Vitals: Oxygen O2 Source Room air - Labs Labs: Laboratory Tests 04/07/22 04/07/22 04/07/22 13:40 13:40 13:40 WBC 10.1 RBC 5.33 Hgb 15.7 Hct 46.4 MCV 87.1 MCH 29.5 MCHC 33.8 RDW 13.2 Plt Count 342 MPV 9.4 Neut # (Auto) 6.9 H Lymph # (Auto) 2.3 [place] # (Auto) 0.6 Eos # (Auto) 0.2 Baso # (Auto) 0.1 Absolute Nucleated RBC 0.00 Nucleated RBC % 0.0 ESR 10 Sodium 137 Potassium 4.7 Chloride 103 Carbon Dioxide 26 Anion Gap 8.0 BUN 16 Creatinine 1.1 Estimated GFR (MDRD) 75 L Glucose 96 Calcium 9.8 Magnesium 2.2 PD MEDICAL DECISION MAKING - ED course Complexity details: re-evaluated patient (he states leg is feeling stronger to baseline deficit with steroids/fluids here in ER. Ambulated more steadily out of ER himself. ), considered differential (sounds likely mild viral syndrom for few days and he attributes this as causing increased weakness right leg (flaring of prior transverse meyelitis). Requests treatment with steroids as that has worked with symptoms previously 3 times. ), d/w patient, d/w informatics consultant (I talked with neurology on-call at the [facility] in [place]. The review of his chart showed a likely diagnosis of transverse myelitis but not classic findings on imaging. He did seem to respond to steroids. Consideration of transverse myelitis versus functional neurologic disorder. ) ED course: Neurology's preference and recommendations would be repeating MRIs and LP to reevaluate those findings before giving steroids. The patient however states he would prefer not to have repeat MRIs and LP as an had been responded to the steroids on previous occasions and his preference would be to go that way. After discussion with him, we shared decision to go ahead with steroid treatment for a few days and if not improving well then to return and may need to undergo further testing or therapy which might necessitate transfer to the [facility] or [facility] again. The neurology dose indicated typically 500 mg Solu-Medrol daily for 3 days. U p-to-date referenced Solu-Medrol 500-1000 mg daily or an alternative would be dexamethasone at 50-200 mg daily. This would allow for oral dosing without him having to return for IV dosing. The patient would prefer that. He states has glucometer at home from prior gestational diabetes and he can check his sugars BID. Not ideal treatment but had responded to steroids 3 times in the past and his goal of care is not to have repeated imaging/LP and just try steroids for few days. Departure - Departure Disposition: 01 Home, Self Care Clinical Impression: Right leg weakness, Subacute transverse myelitis URI (upper respiratory infection) Qualifiers: URI type: unspecified URI Qualified Code(s): J06.9 - Acute upper respiratory infection, unspecified Condition: Stable Record reviewed to determine appropriate education?: Yes Follow-Up: ADRIA WEISS ARNP [Primary Care Provider] - Prescriptions: Dexamethasone [Decadron] 60 mg PO DAILY 3 Days #30 tablet Comments: Continue usual medications. Use the dexamethasone steroid daily for 3 days more as prescribed. Recheck if not improving well over the next several days back to your baseline. Check your sugars at home twice daily to ensure they are not going too high. [facility] well return to the ER as needed. Discharge Date/Time: 04/07/22 15:46
[2022-04-07 13:50] LABS: BASOPHILS # (AUTO) 0.1 10^3/uL (0.0-0.1); BASOPHILS % (AUTO) 0.7 %; EOSINOPHILS # (AUTO) 0.2 10^3/uL (0.0-0.7); HCT - HEMATOCRIT 46.4 % (42.0-52.0); HGB - HEMOGLOBIN 15.7 g/dL (14.0-18.0); LYMPHOCYTES # (AUTO) 2.3 10^3/uL (1.5-3.5); LYMPHOCYTES % (AUTO) 22.5 %; MEAN CORPUSCULAR HEMOGLOBIN 29.5 pg (27.0-31.0); MEAN CORPUSCULAR HGB CONC 33.8 g/dL (32.0-36.0); MEAN CORPUSCULAR VOLUME 87.1 fL (80.0-94.0); MEAN PLATELET VOLUME 9.4 fL (7.4-11.4); MONOCYTES # (AUTO) 0.6 10^3/uL (0.0-1.0); MONOCYTES % (AUTO) 5.8 %; NEUTROPHILS # (AUTO) 6.9 10^3/uL (1.5-6.6); NEUTROPHILS % (AUTO) 68.8 %; PLT - PLATELET COUNT 342 10^3/uL (130-450); RED BLOOD COUNT 5.33 10^6/uL (4.70-6.10); RED CELL DISTRIBUTION WIDTH 13.2 % (12.0-15.0); WHITE BLOOD COUNT 10.1 x10^3/uL (4.8-10.8)
[2022-04-07 14:00] LABS: CALCIUM 9.8 mg/dL (8.5-10.3); CREATININE 1.1 mg/dL (0.6-1.2); MAGNESIUM 2.2 mg/dL (1.7-2.8); POTASSIUM 4.7 mmol/L (3.5-5.0)
[2022-04-07] MEDS ORDERED: methylPREDNISolone SUCCINATE 500 MG in SODIUM CHLORIDE 0.9% 100ML 100 ML IV ONE (14:42)
[2022-04-07 15:48] VITALS: BP 150/90
== END 2022-04-07 15:46 | disposition home or self-care (01) ==
LOC: ED 11:24
DX: G37.3 Acute transverse myelitis in demyelinating disease of central nervous system (principal); J06.9 Acute upper respiratory infection, unspecified; R53.1 Weakness; I10 Essential (primary) hypertension
CPT/HCPCS: 36415; 80048; 83735; 85025; 85651; 96365; 99284

== ENCOUNTER 2022-09-03 12:55 | Emergency (ER) | payer OTHER ==
--- OUTSIDE RECORDS SUMMARY | 2022-09-03 13:26 | EXTERNAL MEDICAL SUMMARY RPT | Continuity of Care Document ---
:1985 Author Organization [facility] Address [address] [place] [address] Phone Care Team Providers Name Role Phone Arian Landrum Unavailable Unavailable Allergies No information. Encounters No information. Functional Status No information. Immunizations No information. Medications No information. 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 Results/Labs test date author facility value unit interpret ation Result panel 1 (unknown) (no (unknown) (unknown) (no value) (units (unk nown) date) unknown) (unknown) (no (unknown) (unknown) 'Feel like a (units (u nknown) date) zombie' unknown) (unknown) (no (unknown) (unknown) [id number] (units (unkno wn) date) unknown) (unknown) (no (unknown) (unknown) 07/08/22 (units (unkno wn) date) unknown) (unknown) (no (unknown) (unknown) 07/08/22] (units (unkn own) date) unknown) (unknown) (no (unknown) (unknown) 14:19) (units (unkno wn) date) unknown) (unknown) (no (unknown) (unknown) 37 y/o M presents (units (unknown) date) to clinic for BTS unknown) Cystoscopy. Urine for cytology. PVR. (unknown) (no (unknown) (unknown) ADHD (-2005) (units (u nknown) date) unknown) (unknown) (no (unknown) (unknown) Age/Sex: 37 / M (units (unknown) date) Date of Service: unknown) (unknown) (no (unknown) (unknown) Allergies (units (unkn own) date) unknown) (unknown) (no (unknown) (unknown) [place], [place] (units ( unknown) date) [id number] unknown) (unknown) (no (unknown) (unknown) Anesthesia (units (unk nown) date) unknown) (unknown) (no (unknown) (unknown) Ankle pain (units (unk nown) date) () unknown) (unknown) (no (unknown) (unknown) Assessment + Plan (units (unknown) date) unknown) (unknown) (no (unknown) (unknown) Attending Dr: (units ( unknown) date) Jenny Evans MD unknown) (unknown) (no (unknown) (unknown) 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 (unknown) (no (unknown) (unknown) Billing- Post (units ( unknown) date) Void Residual: unknown) Post Void Residual- [id number] (unknown) (no (unknown) (unknown) Bladder volume: (units (unknown) date) PVR = unknown) (unknown) (no (unknown) (unknown) Bone spur of (units (u nknown) date) right ankle unknown) (unknown) (no (unknown) (unknown) Chicken pox (units (un known) date) () unknown) (unknown) (no (unknown) (unknown) Chronic back pain (units (unknown) date) () unknown) (unknown) (no (unknown) (unknown) Colitis (units (unkno wn) date) unknown) (unknown) (no (unknown) (unknown) Constipation (units (u nknown) date) unknown) (unknown) (no (unknown) (unknown) : 1985 (units (unknown) date) Acct:[id number] unknown) (unknown) (no (unknown) (unknown) Depression with (units (unknown) date) anxiety () unknown) (unknown) (no (unknown) (unknown) Depression (units (unk nown) date) unknown) (unknown) (no (unknown) (unknown) Dept at (units (unkno wn) date) . unknown) (unknown) (no (unknown) (unknown) Disabled (units (unkno wn) date) Parking-Temporary unknown) #1 ea 11/21/21 [Rx Confirmed 07/08/22] (unknown) (no (unknown) (unknown) Diverticulosis (units (unknown) date) unknown) (unknown) (no (unknown) (unknown) Documented By: (units (unknown) date) Jenny Evans MD unknown) 07/08/22 1417 (unknown) (no (unknown) (unknown) Draft (units (unkno wn) date) unknown) (unknown) (no (unknown) (unknown) Excessive daytime (units (unknown) date) sleepiness unknown) (unknown) (no (unknown) (unknown) Family History (units (unknown) date) (Reviewed 11/24/21 unknown) @ 11:29 by BOZENA Dalton) (unknown) (no (unknown) (unknown) Father PKD (units (unk nown) date) (polycystic kidney unknown) disease) (unknown) (no (unknown) (unknown) Fatigue due to (units (unknown) date) sleep pattern unknown) disturbance (unknown) (no (unknown) (unknown) Foot pain () (units (unknown) date) unknown) (unknown) (no (unknown) (unknown) Former smoker (units ( unknown) date) unknown) (unknown) (no (unknown) (unknown) Grandmother (units (un known) date) PKD unknown) (polycystic kidney disease) (unknown) (no (unknown) (unknown) Grandmother (units (un known) date) Sepsis unknown) (unknown) (no (unknown) (unknown) Headache () (units (unknown) date) unknown) (unknown) (no (unknown) (unknown) Hearing loss (units (u nknown) date) () unknown) (unknown) (no (unknown) (unknown) Hematuria (units (unkn own) date) unknown) (unknown) (no (unknown) (unknown) History of ankle (units (unknown) date) surgery unknown) (unknown) (no (unknown) (unknown) History of eyelid (units (unknown) date) surgery () unknown) (unknown) (no (unknown) (unknown) 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 (unknown) (no (unknown) (unknown) Hyperlipidemia (units (unknown) date) unknown) (unknown) (no (unknown) (unknown) Hypertension (units (u nknown) date) (-2016) unknown) (unknown) (no (unknown) (unknown) Intake Note: (units (u nknown) date) unknown) (unknown) (no (unknown) (unknown) Intake performed (units (unknown) date) by: Mara Floyd unknown) (unknown) (no (unknown) (unknown) Intake (units (unkno wn) date) unknown) (unknown) (no (unknown) (unknown) Intake- Clincial (units (unknown) date) Staff unknown) (unknown) (no (unknown) (unknown) [facility] (units (unknown) date) unknown) (unknown) (no (unknown) (unknown) Loc: URO (units (unkno wn) date) unknown) (unknown) (no (unknown) (unknown) Lower urinary (units ( unknown) date) tract symptoms unknown) (LUTS) (unknown) (no (unknown) (unknown) 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 (unknown) (no (unknown) (unknown) Medical History (units (unknown) date) (Reviewed 11/24/21 unknown) @ 11:29 by BOZENA Dalton) (unknown) (no (unknown) (unknown) Medications (units (un known) date) unknown) (unknown) (no (unknown) (unknown) Migraines (-2005) (units (unknown) date) unknown) (unknown) (no (unknown) (unknown) Mother (units (unkno wn) date) Hypertension unknown) (unknown) (no (unknown) (unknown) Obesity (BMI (units (u nknown) date) 30-39.9) unknown) (unknown) (no (unknown) (unknown) Obstructive sleep (units (unknown) date) apnea, adult unknown) (unknown) (no (unknown) (unknown) Office Procedures (units (unknown) date) unknown) (unknown) (no (unknown) (unknown) Orders (units (unkno wn) date) unknown) (unknown) (no (unknown) (unknown) Orders: (units (unkno wn) date) unknown) (unknown) (no (unknown) (unknown) PFSH (units (unkno wn) date) unknown) (unknown) (no (unknown) (unknown) POC Urine Dip (units ( unknown) date) Today R39.9 - unknown) Unspecified symptoms and signs involving the (unknown) (no (unknown) (unknown) Patient: (units (unkno wn) date) Indio Morales unknown) MR#: [id number] (unknown) (no (unknown) (unknown) Polycystic (units (unk nown) date) kidney, adult type unknown) (-2006) (unknown) (no (unknown) (unknown) Procedure (units (unkn own) date) performed by: unknown) Mara Floyd (unknown) (no (unknown) (unknown) Reason For Visit (units (unknown) date) unknown) (unknown) (no (unknown) (unknown) Residual: post (units (unknown) date) void unknown) (unknown) (no (unknown) (unknown) Shoulder pain (units ( unknown) date) () unknown) (unknown) (no (unknown) (unknown) Signed By: (units (unk nown) date) unknown) (unknown) (no (unknown) (unknown) Sister PKD (units (unk nown) date) (polycystic kidney unknown) disease) (unknown) (no (unknown) (unknown) Smoking Status: (units (unknown) date) Former smoker unknown) (unknown) (no (unknown) (unknown) Snoring (units (unkno wn) date) unknown) (unknown) (no (unknown) (unknown) Social History (units (unknown) date) (Reviewed 11/21/21 unknown) @ 09:26 by Jenny Evans MD) (unknown) (no (unknown) (unknown) Surgical History (units (unknown) date) (Reviewed 11/24/21 unknown) @ 11:29 by BOZENA Dalton) (unknown) (no (unknown) (unknown) This note may (units ( unknown) date) have been all or unknown) partially generated using voice recognition (unknown) (no (unknown) (unknown) Tobacco Status (units (unknown) date) unknown) (unknown) (no (unknown) (unknown) Urology Office (units (unknown) date) Visit unknown) (unknown) (no (unknown) (unknown) Vertigo (-2004) (units (unknown) date) unknown) (unknown) (no (unknown) (unknown) Visit Reasons: (units (unknown) date) BTS Cysto,urine unknown) for cytology/PVR (unknown) (no (unknown) (unknown) alcohol intake: (units (unknown) date) current unknown) (unknown) (no (unknown) (unknown) amlodipine 10 mg (units (unknown) date) tablet 50 mg PO unknown) DAILY 11/21/21 [History Confirmed 07/08/22] (unknown) (no (unknown) (unknown) atomoxetine 100 mg (units (unknown) date) capsule 100 mg PO unknown) DAILY 11/21/21 [History Confirmed 07/08/22] (unknown) (no (unknown) (unknown) caffeine: Yes (units ( unknown) date) unknown) (unknown) (no (unknown) (unknown) gabapentin 300 mg (units (unknown) date) capsule 300 mg PO unknown) DAILY 11/21/21 [History Confirmed 07/08/22] (unknown) (no (unknown) (unknown) genitourinary (units ( unknown) date) system unknown) (unknown) (no (unknown) (unknown) have occurred. If (units (unknown) date) there are any unknown) questions, please contact the Medical Records (unknown) (no (unknown) (unknown) household (units (unkn own) date) members: spouse unknown) (unknown) (no (unknown) (unknown) lisinopril 20 mg (units (unknown) date) tablet 30 mg PO unknown) DAILY 11/21/21 [History Confirmed 07/08/22] (unknown) (no (unknown) (unknown) marital status: (units (unknown) date) unknown) (unknown) (no (unknown) (unknown) may occur. (units (unk nown) date) Occasional unknown) wrong-word or 'sound-alike' substitutions may have (unknown) (no (unknown) (unknown) methylphenidate (units (unknown) date) [From Concerta] unknown) Adverse Reaction (Unknown, Verified 07/08/22 (unknown) (no (unknown) (unknown) multivitamin 1 (units (unknown) date) tab PO DAILY unknown) 10/05/20 [History Confirmed 07/08/22] (unknown) (no (unknown) (unknown) occurred due to (units (unknown) date) the inherent unknown) limitations of voice recognition software. Please (unknown) (no (unknown) (unknown) omega-3 fatty (units ( unknown) date) acids 1,000 mg PO unknown) DAILY 10/05/20 [History Confirmed 07/08/22] (unknown) (no (unknown) (unknown) read the note (units ( unknown) date) carefully and unknown) recognize, using context, where these substitutions (unknown) (no (unknown) (unknown) sertraline 25 mg (units (unknown) date) tablet (Zoloft) unknown) 100 mg PO DAILY 11/21/21 [History Confirmed (unknown) (no (unknown) (unknown) software. (units (unkn own) date) Although every unknown) effort is made to edit content, mosaicist errors (unknown) (no (unknown) (unknown) trazodone 50 mg (units (unknown) date) tablet 100 mg PO unknown) BEDTIME insomnia 11/21/21 [History Confirmed Result panel 2 (unknown) (no (unknown) (unknown) (no value) (units (unk nown) date) unknown) (unknown) (no (unknown) (unknown) 'Feel like a (units (u nknown) date) zombie' unknown) (unknown) (no (unknown) (unknown) [id number] (units (unkno wn) date) unknown) (unknown) (no (unknown) (unknown) 07/08/22 (units (unkno wn) date) unknown) (unknown) (no (unknown) (unknown) 07/08/22] (units (unkn own) date) unknown) (unknown) (no (unknown) (unknown) 14:19) (units (unkno wn) date) unknown) (unknown) (no (unknown) (unknown) 14:37 (units (unkno wn) date) unknown) (unknown) (no (unknown) (unknown) 23 (units (unkno wn) date) unknown) (unknown) (no (unknown) (unknown) 3 (units (unkno wn) date) unknown) (unknown) (no (unknown) (unknown) 37 (units (unkno wn) date) unknown) (unknown) (no (unknown) (unknown) 37 y/o M presents (units (unknown) date) to clinic for BTS unknown) Cystoscopy. Urine for cytology. PVR. (unknown) (no (unknown) (unknown) :37 (units (unkno wn) date) unknown) (unknown) (no (unknown) (unknown) ADHD (-2004) (units (u nknown) date) unknown) (unknown) (no (unknown) (unknown) Age/Sex: 37 / M (units (unknown) date) Date of Service: unknown) (unknown) (no (unknown) (unknown) Allergies (units (unkn own) date) unknown) (unknown) (no (unknown) (unknown) [place], [place] (units ( unknown) date) [id number] unknown) (unknown) (no (unknown) (unknown) Anesthesia (units (unk nown) date) unknown) (unknown) (no (unknown) (unknown) Ankle pain (units (unk nown) date) () unknown) (unknown) (no (unknown) (unknown) Assessment + Plan (units (unknown) date) unknown) (unknown) (no (unknown) (unknown) Attending Dr: (units ( unknown) date) Jenny Evans MD unknown) (unknown) (no (unknown) (unknown) 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 (unknown) (no (unknown) (unknown) Billing- Post (units ( unknown) date) Void Residual: unknown) Post Void Residual- [id number] (unknown) (no (unknown) (unknown) Bladder volume: (units (unknown) date) PVR = unknown) (unknown) (no (unknown) (unknown) Bone spur of (units (u nknown) date) right ankle unknown) (unknown) (no (unknown) (unknown) Chicken pox (units (un known) date) () unknown) (unknown) (no (unknown) (unknown) Chronic back pain (units (unknown) date) () unknown) (unknown) (no (unknown) (unknown) Colitis (units (unkno wn) date) unknown) (unknown) (no (unknown) (unknown) Constipation (units (u nknown) date) unknown) (unknown) (no (unknown) (unknown) : 1985 (units (unknown) date) Acct:[id number] unknown) (unknown) (no (unknown) (unknown) Depression with (units (unknown) date) anxiety () unknown) (unknown) (no (unknown) (unknown) Depression (units (unk nown) date) unknown) (unknown) (no (unknown) (unknown) Dept at (units (unkno wn) date) . unknown) (unknown) (no (unknown) (unknown) Disabled (units (unkno wn) date) Parking-Temporary unknown) #1 ea 11/21/21 [Rx Confirmed 07/08/22] (unknown) (no (unknown) (unknown) Diverticulosis (units (unknown) date) unknown) (unknown) (no (unknown) (unknown) Documented By: (units (unknown) date) Jenny Evans MD unknown) 07/08/22 1417 (unknown) (no (unknown) (unknown) Draft (units (unkno wn) date) unknown) (unknown) (no (unknown) (unknown) Excessive daytime (units (unknown) date) sleepiness unknown) (unknown) (no (unknown) (unknown) Family History (units (unknown) date) (Reviewed 11/24/21 unknown) @ 11:29 by BOZENA Dalton) (unknown) (no (unknown) (unknown) Father PKD (units (unk nown) date) (polycystic kidney unknown) disease) (unknown) (no (unknown) (unknown) Fatigue due to (units (unknown) date) sleep pattern unknown) disturbance (unknown) (no (unknown) (unknown) Foot pain () (units (unknown) date) unknown) (unknown) (no (unknown) (unknown) Former smoker (units ( unknown) date) unknown) (unknown) (no (unknown) (unknown) Grandmother (units (un known) date) PKD unknown) (polycystic kidney disease) (unknown) (no (unknown) (unknown) Grandmother (units (un known) date) Sepsis unknown) (unknown) (no (unknown) (unknown) Headache () (units (unknown) date) unknown) (unknown) (no (unknown) (unknown) Hearing loss (units (u nknown) date) () unknown) (unknown) (no (unknown) (unknown) Hematuria (units (unkn own) date) unknown) (unknown) (no (unknown) (unknown) History of ankle (units (unknown) date) surgery unknown) (unknown) (no (unknown) (unknown) History of eyelid (units (unknown) date) surgery (-2010) unknown) (unknown) (no (unknown) (unknown) 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 (unknown) (no (unknown) (unknown) Hyperlipidemia (units (unknown) date) unknown) (unknown) (no (unknown) (unknown) Hypertension (units (u nknown) date) (-2016) unknown) (unknown) (no (unknown) (unknown) Intake Note: (units (u nknown) date) unknown) (unknown) (no (unknown) (unknown) Intake performed (units (unknown) date) by: Mara Floyd unknown) (unknown) (no (unknown) (unknown) Intake (units (unkno wn) date) unknown) (unknown) (no (unknown) (unknown) Intake- Clincial (units (unknown) date) Staff unknown) (unknown) (no (unknown) (unknown) [facility] (units (unknown) date) unknown) (unknown) (no (unknown) (unknown) Loc: URO (units (unkno wn) date) unknown) (unknown) (no (unknown) (unknown) Lower urinary (units ( unknown) date) tract symptoms unknown) (LUTS) (unknown) (no (unknown) (unknown) 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 (unknown) (no (unknown) (unknown) Medical History (units (unknown) date) (Reviewed 11/24/21 unknown) @ 11:29 by BOZENA Dalton) (unknown) (no (unknown) (unknown) Medications (units (un known) date) unknown) (unknown) (no (unknown) (unknown) Migraines (-2005) (units (unknown) date) unknown) (unknown) (no (unknown) (unknown) Mother (units (unkno wn) date) Hypertension unknown) (unknown) (no (unknown) (unknown) Obesity (BMI (units (u nknown) date) 30-39.9) unknown) (unknown) (no (unknown) (unknown) Obstructive sleep (units (unknown) date) apnea, adult unknown) (unknown) (no (unknown) (unknown) Office Procedures (units (unknown) date) unknown) (unknown) (no (unknown) (unknown) Orders (units (unkno wn) date) unknown) (unknown) (no (unknown) (unknown) Orders: (units (unkno wn) date) unknown) (unknown) (no (unknown) (unknown) PFSH (units (unkno wn) date) unknown) (unknown) (no (unknown) (unknown) POC Urine Dip (units ( unknown) date) Today R39.9 - unknown) Unspecified symptoms and signs involving the (unknown) (no (unknown) (unknown) Patient: (units (unkno wn) date) Indio Morales unknown) MR#: [id number] (unknown) (no (unknown) (unknown) Polycystic (units (unk nown) date) kidney, adult type unknown) (-2006) (unknown) (no (unknown) (unknown) Procedure (units (unkn own) date) performed by: unknown) Mara Floyd (unknown) (no (unknown) (unknown) Reason For Visit (units (unknown) date) unknown) (unknown) (no (unknown) (unknown) Residual: post (units (unknown) date) void unknown) (unknown) (no (unknown) (unknown) Results (units (unkno wn) date) unknown) (unknown) (no (unknown) (unknown) Shoulder pain (units ( unknown) date) () unknown) (unknown) (no (unknown) (unknown) Signed By: (units (unk nown) date) unknown) (unknown) (no (unknown) (unknown) Sister PKD (units (unk nown) date) (polycystic kidney unknown) disease) (unknown) (no (unknown) (unknown) Smoking Status: (units (unknown) date) Former smoker unknown) (unknown) (no (unknown) (unknown) Snoring (units (unkno wn) date) unknown) (unknown) (no (unknown) (unknown) Social History (units (unknown) date) (Reviewed 11/21/21 unknown) @ 09:26 by Jenny Evans MD) (unknown) (no (unknown) (unknown) Surgical History (units (unknown) date) (Reviewed 11/24/21 unknown) @ 11:29 by BOZENA Dalton) (unknown) (no (unknown) (unknown) This note may (units ( unknown) date) have been all or unknown) partially generated using voice recognition (unknown) (no (unknown) (unknown) Tobacco Status (units (unknown) date) unknown) (unknown) (no (unknown) (unknown) Urine Appearance (units (unknown) date) Clear Last Edit by unknown) Mara Floyd RN on 07/08/22 14:37 (unknown) (no (unknown) (unknown) Urine Bilirubin (units (unknown) date) Negative Last Edit unknown) by Mara Floyd RN on 07/08/22 14:37 (unknown) (no (unknown) (unknown) Urine Blood (units (un known) date) Negative Last Edit unknown) by Mara Floyd RN on 07/08/22 14:37 (unknown) (no (unknown) (unknown) Urine Color (units (un known) date) Yellow Last Edit unknown) by Mara Floyd RN on 07/08/22 14:37 (unknown) (no (unknown) (unknown) Urine Dipstick (units (unknown) date) unknown) (unknown) (no (unknown) (unknown) Urine Glucose (units ( unknown) date) Negative mg/dL unknown) Last Edit by Mara Floyd RN on 07/08/22 14: (unknown) (no (unknown) (unknown) Urine Ketones (units ( unknown) date) Negative Last Edit unknown) by Mara Floyd RN on 07/08/22 14:37 (unknown) (no (unknown) (unknown) Urine Leukocyte (units (unknown) date) Esterase Negative unknown) Last Edit by Mara Floyd RN on (unknown) (no (unknown) (unknown) Urine Nitrate (units ( unknown) date) Negative Last Edit unknown) by Mara Floyd RN on 07/08/22 14:37 (unknown) (no (unknown) (unknown) Urine Protein (units ( unknown) date) Negative Last Edit unknown) by Mara Floyd RN on 07/08/22 14:37 (unknown) (no (unknown) (unknown) Urine Specific (units (unknown) date) [place] 1.020 Last unknown) Edit by Mara Floyd RN on 07/08/22 14 (unknown) (no (unknown) (unknown) Urine (units (unkno wn) date) Urobilinogen - 0.2 unknown) mg/dL Last Edit by Mara Floyd RN on (unknown) (no (unknown) (unknown) Urine pH 7.0 Last (units (unknown) date) Edit by Mara unknown) RENAE Floyd on 07/08/22 14:37 (unknown) (no (unknown) (unknown) Urology Office (units (unknown) date) Visit unknown) (unknown) (no (unknown) (unknown) Vertigo () (units (unknown) date) unknown) (unknown) (no (unknown) (unknown) Visit Reasons: (units (unknown) date) BTS Cysto,urine unknown) for cytology/PVR (unknown) (no (unknown) (unknown) alcohol intake: (units (unknown) date) current unknown) (unknown) (no (unknown) (unknown) amlodipine 10 mg (units (unknown) date) tablet 50 mg PO unknown) DAILY 11/21/21 [History Confirmed 07/08/22] (unknown) (no (unknown) (unknown) atomoxetine 100 mg (units (unknown) date) capsule 100 mg PO unknown) DAILY 11/21/21 [History Confirmed 07/08/22] (unknown) (no (unknown) (unknown) caffeine: Yes (units ( unknown) date) unknown) (unknown) (no (unknown) (unknown) gabapentin 300 mg (units (unknown) date) capsule 300 mg PO unknown) DAILY 11/21/21 [History Confirmed 07/08/22] (unknown) (no (unknown) (unknown) genitourinary (units ( unknown) date) system unknown) (unknown) (no (unknown) (unknown) have occurred. If (units (unknown) date) there are any unknown) questions, please contact the Medical Records (unknown) (no (unknown) (unknown) household (units (unkn own) date) members: spouse unknown) (unknown) (no (unknown) (unknown) lisinopril 20 mg (units (unknown) date) tablet 30 mg PO unknown) DAILY 11/21/21 [History Confirmed 07/08/22] (unknown) (no (unknown) (unknown) marital status: (units (unknown) date) unknown) (unknown) (no (unknown) (unknown) may occur. (units (unk nown) date) Occasional unknown) wrong-word or 'sound-alike' substitutions may have (unknown) (no (unknown) (unknown) methylphenidate (units (unknown) date) [From Concerta] unknown) Adverse Reaction (Unknown, Verified 07/08/22 (unknown) (no (unknown) (unknown) multivitamin 1 (units (unknown) date) tab PO DAILY unknown) 10/05/20 [History Confirmed 07/08/22] (unknown) (no (unknown) (unknown) occurred due to (units (unknown) date) the inherent unknown) limitations of voice recognition software. Please (unknown) (no (unknown) (unknown) omega-3 fatty (units ( unknown) date) acids 1,000 mg PO unknown) DAILY 10/05/20 [History Confirmed 07/08/22] (unknown) (no (unknown) (unknown) read the note (units ( unknown) date) carefully and unknown) recognize, using context, where these substitutions (unknown) (no (unknown) (unknown) sertraline 25 mg (units (unknown) date) tablet (Zoloft) unknown) 100 mg PO DAILY 11/21/21 [History Confirmed (unknown) (no (unknown) (unknown) software. (units (unkn own) date) Although every unknown) effort is made to edit content, mosaicist errors (unknown) (no (unknown) (unknown) trazodone 50 mg (units (unknown) date) tablet 100 mg PO unknown) BEDTIME insomnia 11/21/21 [History Confirmed Result panel 3 (unknown) (no (unknown) (unknown) (no value) (units (unk nown) date) unknown) (unknown) (no (unknown) (unknown) 'Feel like a (units (u nknown) date) zombie' unknown) (unknown) (no (unknown) (unknown) [id number] (units (unkno wn) date) unknown) (unknown) (no (unknown) (unknown) 07/08/22 (units (unkno wn) date) unknown) (unknown) (no (unknown) (unknown) 07/08/22] (units (unkn own) date) unknown) (unknown) (no (unknown) (unknown) 14:19) (units (unkno wn) date) unknown) (unknown) (no (unknown) (unknown) 14:37 (units (unkno wn) date) unknown) (unknown) (no (unknown) (unknown) 15:27 (units (unkno wn) date) unknown) (unknown) (no (unknown) (unknown) 23 (units (unkno wn) date) unknown) (unknown) (no (unknown) (unknown) 3 (units (unkno wn) date) unknown) (unknown) (no (unknown) (unknown) 37 (units (unkno wn) date) unknown) (unknown) (no (unknown) (unknown) 37 y/o M presents (units (unknown) date) to clinic for BTS unknown) Cystoscopy. Urine for cytology. PVR. (unknown) (no (unknown) (unknown) :35 (units (unkno wn) date) unknown) (unknown) (no (unknown) (unknown) ADHD (-2005) (units (u nknown) date) unknown) (unknown) (no (unknown) (unknown) Age/Sex: 37 / M (units (unknown) date) Date of Service: unknown) (unknown) (no (unknown) (unknown) Allergies (units (unkn own) date) unknown) (unknown) (no (unknown) (unknown) Ekaterina, ARCELIA (units ( unknown) date) [id number] unknown) (unknown) (no (unknown) (unknown) Anesthesia (units (unk nown) date) unknown) (unknown) (no (unknown) (unknown) Ankle pain (units (unk nown) date) (-2005) unknown) (unknown) (no (unknown) (unknown) Assessment + Plan (units (unknown) date) unknown) (unknown) (no (unknown) (unknown) Attending Dr: (units ( unknown) date) Jenny Evans MD unknown) (unknown) (no (unknown) (unknown) 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 (unknown) (no (unknown) (unknown) BP 128/91 H (units (un known) date) unknown) (unknown) (no (unknown) (unknown) Billing- Post (units ( unknown) date) Void Residual: unknown) Post Void Residual- 56646 (unknown) (no (unknown) (unknown) Bladder volume: (units (unknown) date) PVR = 139ml unknown) (unknown) (no (unknown) (unknown) Blood Pressure (units (unknown) date) Location Lt unknown) brachial (unknown) (no (unknown) (unknown) Bone spur of (units (u nknown) date) right ankle unknown) (unknown) (no (unknown) (unknown) Chicken pox (units (un known) date) () unknown) (unknown) (no (unknown) (unknown) Chronic back pain (units (unknown) date) () unknown) (unknown) (no (unknown) (unknown) Colitis (units (unkno wn) date) unknown) (unknown) (no (unknown) (unknown) Constipation (units (u nknown) date) unknown) (unknown) (no (unknown) (unknown) : 1985 (units (unknown) date) Acct:[id number] unknown) (unknown) (no (unknown) (unknown) Depression with (units (unknown) date) anxiety () unknown) (unknown) (no (unknown) (unknown) Depression (units (unk nown) date) unknown) (unknown) (no (unknown) (unknown) Dept at (units (unkno wn) date) . unknown) (unknown) (no (unknown) (unknown) Disabled (units (unkno wn) date) Parking-Temporary unknown) #1 ea 11/21/21 [Rx Confirmed 07/08/22] (unknown) (no (unknown) (unknown) Diverticulosis (units (unknown) date) unknown) (unknown) (no (unknown) (unknown) Documented By: (units (unknown) date) Jenny Evans MD unknown) 07/08/22 1417 (unknown) (no (unknown) (unknown) Draft (units (unkno wn) date) unknown) (unknown) (no (unknown) (unknown) Excessive daytime (units (unknown) date) sleepiness unknown) (unknown) (no (unknown) (unknown) Family History (units (unknown) date) (Reviewed 11/24/21 unknown) @ 11:29 by BOZENA Dalton) (unknown) (no (unknown) (unknown) Father PKD (units (unk nown) date) (polycystic kidney unknown) disease) (unknown) (no (unknown) (unknown) Fatigue due to (units (unknown) date) sleep pattern unknown) disturbance (unknown) (no (unknown) (unknown) Foot pain () (units (unknown) date) unknown) (unknown) (no (unknown) (unknown) Former smoker (units ( unknown) date) unknown) (unknown) (no (unknown) (unknown) Grandmother (units (un known) date) PKD unknown) (polycystic kidney disease) (unknown) (no (unknown) (unknown) Grandmother (units (un known) date) Sepsis unknown) (unknown) (no (unknown) (unknown) Headache () (units (unknown) date) unknown) (unknown) (no (unknown) (unknown) Hearing loss (units (u nknown) date) () unknown) (unknown) (no (unknown) (unknown) Hematuria (units (unkn own) date) unknown) (unknown) (no (unknown) (unknown) History of ankle (units (unknown) date) surgery unknown) (unknown) (no (unknown) (unknown) History of eyelid (units (unknown) date) surgery () unknown) (unknown) (no (unknown) (unknown) 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 (unknown) (no (unknown) (unknown) Hyperlipidemia (units (unknown) date) unknown) (unknown) (no (unknown) (unknown) Hypertension (units (u nknown) date) () unknown) (unknown) (no (unknown) (unknown) Intake Note: (units (u nknown) date) unknown) (unknown) (no (unknown) (unknown) Intake performed (units (unknown) date) by: Mara Floyd unknown) (unknown) (no (unknown) (unknown) Intake (units (unkno wn) date) unknown) (unknown) (no (unknown) (unknown) Intake- Clincial (units (unknown) date) Staff unknown) (unknown) (no (unknown) (unknown) [facility] (units (unknown) date) unknown) (unknown) (no (unknown) (unknown) Loc: URO (units (unkno wn) date) unknown) (unknown) (no (unknown) (unknown) Lower urinary (units ( unknown) date) tract symptoms unknown) (LUTS) (unknown) (no (unknown) (unknown) 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 (unknown) (no (unknown) (unknown) Medical History (units (unknown) date) (Reviewed 11/24/21 unknown) @ 11:29 by BOZENA Dalton) (unknown) (no (unknown) (unknown) Medications (units (un known) date) unknown) (unknown) (no (unknown) (unknown) Migraines (-2004) (units (unknown) date) unknown) (unknown) (no (unknown) (unknown) Mother (units (unkno wn) date) Hypertension unknown) (unknown) (no (unknown) (unknown) Obesity (BMI (units (u nknown) date) 30-39.9) unknown) (unknown) (no (unknown) (unknown) Obstructive sleep (units (unknown) date) apnea, adult unknown) (unknown) (no (unknown) (unknown) Office Procedures (units (unknown) date) unknown) (unknown) (no (unknown) (unknown) Orders (units (unkno wn) date) unknown) (unknown) (no (unknown) (unknown) Orders: (units (unkno wn) date) unknown) (unknown) (no (unknown) (unknown) Oxygen Delivery (units (unknown) date) Method room air unknown) (unknown) (no (unknown) (unknown) PFSH (units (unkno wn) date) unknown) (unknown) (no (unknown) (unknown) POC Urine Dip (units ( unknown) date) Today R39.9 - unknown) Unspecified symptoms and signs involving the (unknown) (no (unknown) (unknown) Patient: (units (unkno wn) date) [place] Morales unknown) MR#: [id number] (unknown) (no (unknown) (unknown) Polycystic (units (unk nown) date) kidney, adult type unknown) (-2006) (unknown) (no (unknown) (unknown) Position Sitting (units (unknown) date) unknown) (unknown) (no (unknown) (unknown) Procedure (units (unkn own) date) performed by: unknown) Mara Floyd (unknown) (no (unknown) (unknown) Pulse 91 H (units (unk nown) date) unknown) (unknown) (no (unknown) (unknown) Pulse Oximetry (units (unknown) date) (%) 98 unknown) (unknown) (no (unknown) (unknown) Pulse Source (units (u nknown) date) Monitor unknown) (unknown) (no (unknown) (unknown) Reason For Visit (units (unknown) date) unknown) (unknown) (no (unknown) (unknown) Residual: post (units (unknown) date) void unknown) (unknown) (no (unknown) (unknown) Respiration 16 (units (unknown) date) unknown) (unknown) (no (unknown) (unknown) Results (units (unkno wn) date) unknown) (unknown) (no (unknown) (unknown) Shoulder pain (units ( unknown) date) () unknown) (unknown) (no (unknown) (unknown) Signed By: (units (unk nown) date) unknown) (unknown) (no (unknown) (unknown) Sister PKD (units (unk nown) date) (polycystic kidney unknown) disease) (unknown) (no (unknown) (unknown) Smoking Status: (units (unknown) date) Former smoker unknown) (unknown) (no (unknown) (unknown) Snoring (units (unkno wn) date) unknown) (unknown) (no (unknown) (unknown) Social History (units (unknown) date) (Reviewed 11/21/21 unknown) @ 09:26 by Jenny Evans MD) (unknown) (no (unknown) (unknown) Surgical History (units (unknown) date) (Reviewed 11/24/21 unknown) @ 11:29 by BOZENA Dalton) (unknown) (no (unknown) (unknown) This note may (units ( unknown) date) have been all or unknown) partially generated using voice recognition (unknown) (no (unknown) (unknown) Tobacco Status (units (unknown) date) unknown) (unknown) (no (unknown) (unknown) Urine Appearance (units (unknown) date) Clear Last Edit by unknown) Mara Floyd RN on 07/08/22 14:37 (unknown) (no (unknown) (unknown) Urine Bilirubin (units (unknown) date) Negative Last Edit unknown) by Mara Floyd RN on 07/08/22 14:37 (unknown) (no (unknown) (unknown) Urine Blood (units (un known) date) Negative Last Edit unknown) by Mara Floyd RN on 07/08/22 14:37 (unknown) (no (unknown) (unknown) Urine Color (units (un known) date) Yellow Last Edit unknown) by Maar Floyd RN on 07/08/22 14:37 (unknown) (no (unknown) (unknown) Urine Dipstick (units (unknown) date) unknown) (unknown) (no (unknown) (unknown) Urine Glucose (units ( unknown) date) Negative mg/dL unknown) Last Edit by Mara Floyd RN on 07/08/22 14: (unknown) (no (unknown) (unknown) Urine Ketones (units ( unknown) date) Negative Last Edit unknown) by Mara Floyd RN on 07/08/22 14:37 (unknown) (no (unknown) (unknown) Urine Leukocyte (units (unknown) date) Esterase Negative unknown) Last Edit by Mara Floyd RN on (unknown) (no (unknown) (unknown) Urine Nitrate (units ( unknown) date) Negative Last Edit unknown) by Mara Floyd RN on 07/08/22 14:37 (unknown) (no (unknown) (unknown) Urine Protein (units ( unknown) date) Negative Last Edit unknown) by Mara Floyd RN on 07/08/22 14:37 (unknown) (no (unknown) (unknown) Urine Specific (units (unknown) date) [place] 1.020 Last unknown) Edit by Mara Floyd RN on 07/08/22 14 (unknown) (no (unknown) (unknown) Urine (units (unkno wn) date) Urobilinogen - 0.2 unknown) mg/dL Last Edit by Mara Floyd RN on (unknown) (no (unknown) (unknown) Urine pH 7.0 Last (units (unknown) date) Edit by Mara unknown) RENAE Floyd on 07/08/22 14:37 (unknown) (no (unknown) (unknown) Urology Office (units (unknown) date) Visit unknown) (unknown) (no (unknown) (unknown) Vertigo (-2004) (units (unknown) date) unknown) (unknown) (no (unknown) (unknown) Visit Reasons: (units (unknown) date) BTS Cysto,urine unknown) for cytology/PVR (unknown) (no (unknown) (unknown) Vitals (units (unkno wn) date) unknown) (unknown) (no (unknown) (unknown) alcohol intake: (units (unknown) date) current unknown) (unknown) (no (unknown) (unknown) amlodipine 10 mg (units (unknown) date) tablet 50 mg PO unknown) DAILY 11/21/21 [History Confirmed 07/08/22] (unknown) (no (unknown) (unknown) atomoxetine 100 mg (units (unknown) date) capsule 100 mg PO unknown) DAILY 11/21/21 [History Confirmed 07/08/22] (unknown) (no (unknown) (unknown) caffeine: Yes (units ( unknown) date) unknown) (unknown) (no (unknown) (unknown) gabapentin 300 mg (units (unknown) date) capsule 300 mg PO unknown) DAILY 11/21/21 [History Confirmed 07/08/22] (unknown) (no (unknown) (unknown) genitourinary (units ( unknown) date) system unknown) (unknown) (no (unknown) (unknown) have occurred. If (units (unknown) date) there are any unknown) questions, please contact the Medical Records (unknown) (no (unknown) (unknown) household (units (unkn own) date) members: spouse unknown) (unknown) (no (unknown) (unknown) lisinopril 20 mg (units (unknown) date) tablet 30 mg PO unknown) DAILY 11/21/21 [History Confirmed 07/08/22] (unknown) (no (unknown) (unknown) marital status: (units (unknown) date) unknown) (unknown) (no (unknown) (unknown) may occur. (units (unk nown) date) Occasional unknown) wrong-word or 'sound-alike' substitutions may have (unknown) (no (unknown) (unknown) methylphenidate (units (unknown) date) [From Concerta] unknown) Adverse Reaction (Unknown, Verified 07/08/22 (unknown) (no (unknown) (unknown) multivitamin 1 (units (unknown) date) tab PO DAILY unknown) 10/05/20 [History Confirmed 07/08/22] (unknown) (no (unknown) (unknown) occurred due to (units (unknown) date) the inherent unknown) limitations of voice recognition software. Please (unknown) (no (unknown) (unknown) omega-3 fatty (units ( unknown) date) acids 1,000 mg PO unknown) DAILY 10/05/20 [History Confirmed 07/08/22] (unknown) (no (unknown) (unknown) read the note (units ( unknown) date) carefully and unknown) recognize, using context, where these substitutions (unknown) (no (unknown) (unknown) sertraline 25 mg (units (unknown) date) tablet (Zoloft) unknown) 100 mg PO DAILY 11/21/21 [History Confirmed (unknown) (no (unknown) (unknown) software. (units (unkn own) date) Although every unknown) effort is made to edit content, mosaicist errors (unknown) (no (unknown) (unknown) trazodone 50 mg (units (unknown) date) tablet 100 mg PO unknown) BEDTIME insomnia 11/21/21 [History Confirmed Result panel 4 (unknown) (no (unknown) (unknown) (no value) (units (unk nown) date) unknown) (unknown) (no (unknown) (unknown) 'Feel like a (units (u nknown) date) zombie' unknown) (unknown) (no (unknown) (unknown) (1) History of (units (unknown) date) primary bladder unknown) cancer: (unknown) (no (unknown) (unknown) (2) Lower urinary (units (unknown) date) tract symptoms unknown) (LUTS): (unknown) (no (unknown) (unknown) [id number] (units (unkno wn) date) unknown) (unknown) (no (unknown) (unknown) 07/08/22 1654 (units ( unknown) date) unknown) (unknown) (no (unknown) (unknown) 07/08/22 (units (unkno wn) date) unknown) (unknown) (no (unknown) (unknown) 07/08/22] (units (unkn own) date) unknown) (unknown) (no (unknown) (unknown) 1. Return to (units (u nknown) date) [facility] 1 unknown) year for clinical update, PVR, and BT S (unknown) (no (unknown) (unknown) 14:19) (units (unkno wn) date) unknown) (unknown) (no (unknown) (unknown) 14:37 (units (unkno wn) date) unknown) (unknown) (no (unknown) (unknown) 15:27 (units (unkno wn) date) unknown) (unknown) (no (unknown) (unknown) 2. Submit urine (units (unknown) date) sample today for unknown) DX bladder. (unknown) (no (unknown) (unknown) 23 (units (unkno wn) date) unknown) (unknown) (no (unknown) (unknown) 3 (units (unkno wn) date) unknown) (unknown) (no (unknown) (unknown) 37 (units (unkno wn) date) unknown) (unknown) (no (unknown) (unknown) 37 y/o M presents (units (unknown) date) to clinic for BTS unknown) Cystoscopy. Urine for cytology. PVR. (unknown) (no (unknown) (unknown) :37 (units (unkno wn) date) unknown) (unknown) (no (unknown) (unknown) ADHD (-2005) (units (u nknown) date) unknown) (unknown) (no (unknown) (unknown) Age/Sex: 37 / M (units (unknown) date) Date of Service: unknown) (unknown) (no (unknown) (unknown) All systems (units (un known) date) reviewed + are unknown) unremarkable except as noted in HPI and below (unknown) (no (unknown) (unknown) Allergies (units (unkn own) date) unknown) (unknown) (no (unknown) (unknown) [employer]! (units (unkno wn) date) unknown) (unknown) (no (unknown) (unknown) Ekaterina, ARCELIA (units ( unknown) date) [id number] unknown) (unknown) (no (unknown) (unknown) Anesthesia (units (unk nown) date) unknown) (unknown) (no (unknown) (unknown) Ankle pain (units (unk nown) date) () unknown) (unknown) (no (unknown) (unknown) Assessment + Plan (units (unknown) date) unknown) (unknown) (no (unknown) (unknown) Attending Dr: (units ( unknown) date) Jenny Evans MD unknown) (unknown) (no (unknown) (unknown) 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 (unknown) (no (unknown) (unknown) BP 128/91 H (units (un known) date) unknown) (unknown) (no (unknown) (unknown) Billing- Post (units ( unknown) date) Void Residual: unknown) Post Void Residual- 13169 (unknown) (no (unknown) (unknown) Bladder volume: (units (unknown) date) PVR = 139ml unknown) (unknown) (no (unknown) (unknown) Bladder-normal (units (unknown) date) ureteral orifices unknown) bilaterally. Well-healed stellate resection (unknown) (no (unknown) (unknown) Blood Pressure (units (unknown) date) Location Lt unknown) brachial (unknown) (no (unknown) (unknown) Bone spur of (units (u nknown) date) right ankle unknown) (unknown) (no (unknown) (unknown) Chicken pox (units (un known) date) () unknown) (unknown) (no (unknown) (unknown) Chief Complaint (units (unknown) date) unknown) (unknown) (no (unknown) (unknown) Chief Complaint: (units (unknown) date) History of bladder unknown) cancer (unknown) (no (unknown) (unknown) Chronic back pain (units (unknown) date) () unknown) (unknown) (no (unknown) (unknown) Code(s): (units (unkno wn) date) unknown) (unknown) (no (unknown) (unknown) Colitis (units (unkno wn) date) unknown) (unknown) (no (unknown) (unknown) Consent signed: (units (unknown) date) Yes unknown) (unknown) (no (unknown) (unknown) Const (units (unkno wn) date) unknown) (unknown) (no (unknown) (unknown) Constipation (units (u nknown) date) unknown) (unknown) (no (unknown) (unknown) : 1985 (units (unknown) date) Acct:[id number] unknown) (unknown) (no (unknown) (unknown) Depression with (units (unknown) date) anxiety (-2004) unknown) (unknown) (no (unknown) (unknown) Depression (units (unk nown) date) unknown) (unknown) (no (unknown) (unknown) Dept at (units (unkno wn) date) . unknown) (unknown) (no (unknown) (unknown) Details: (units (unkno wn) date) unknown) (unknown) (no (unknown) (unknown) Disabled (units (unkno wn) date) Parking-Temporary unknown) #1 ea 11/21/21 [Rx Confirmed 07/08/22] (unknown) (no (unknown) (unknown) Diverticulosis (units (unknown) date) unknown) (unknown) (no (unknown) (unknown) Documented By: (units (unknown) date) Jenny Evans MD unknown) 07/08/22 1417 (unknown) (no (unknown) (unknown) Encounter (units (unkn own) date) documentation unknown) common billing-5 minutes (unknown) (no (unknown) (unknown) Exam Narrative (units (unknown) date) unknown) (unknown) (no (unknown) (unknown) Exam Narrative: (units (unknown) date) unknown) (unknown) (no (unknown) (unknown) Exam (units (unkno wn) date) unknown) (unknown) (no (unknown) (unknown) Excessive daytime (units (unknown) date) sleepiness unknown) (unknown) (no (unknown) (unknown) External (units (unkno wn) date) sphincter-coapted unknown) with normal overlying urothelium. (unknown) (no (unknown) (unknown) FINDINGS: (units (unkn own) date) unknown) (unknown) (no (unknown) (unknown) [id number] (units (u nknown) date) encounter unknown) exclusive of performance of cystoscopy-15 minutes (unknown) (no (unknown) (unknown) Family History (units (unknown) date) (Reviewed 07/08/22 unknown) @ 16:21 by Jenny Evans MD) (unknown) (no (unknown) (unknown) Father PKD (units (unk nown) date) (polycystic kidney unknown) disease) (unknown) (no (unknown) (unknown) Fatigue due to (units (unknown) date) sleep pattern unknown) disturbance (unknown) (no (unknown) (unknown) Foot pain (-2003) (units (unknown) date) unknown) (unknown) (no (unknown) (unknown) Former smoker (units ( unknown) date) unknown) (unknown) (no (unknown) (unknown) Grandmother (units (un known) date) PKD unknown) (polycystic kidney disease) (unknown) (no (unknown) (unknown) Grandmother (units (un known) date) Sepsis unknown) (unknown) (no (unknown) (unknown) HPI (units (unkno wn) date) unknown) (unknown) (no (unknown) (unknown) Headache () (units (unknown) date) unknown) (unknown) (no (unknown) (unknown) Hearing loss (units (u nknown) date) () unknown) (unknown) (no (unknown) (unknown) Hematuria (units (unkn own) date) unknown) (unknown) (no (unknown) (unknown) History of ankle (units (unknown) date) surgery unknown) (unknown) (no (unknown) (unknown) History of eyelid (units (unknown) date) surgery () unknown) (unknown) (no (unknown) (unknown) 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 (unknown) (no (unknown) (unknown) Hyperlipidemia (units (unknown) date) unknown) (unknown) (no (unknown) (unknown) Hypertension (units (u nknown) date) () unknown) (unknown) (no (unknown) (unknown) Informed consent (units (unknown) date) given: Yes unknown) (unknown) (no (unknown) (unknown) Intake Note: (units (u nknown) date) unknown) (unknown) (no (unknown) (unknown) Intake performed (units (unknown) date) by: Mara Floyd unknown) (unknown) (no (unknown) (unknown) Intake (units (unkno wn) date) unknown) (unknown) (no (unknown) (unknown) Intake- Clincial (units (unknown) date) Staff unknown) (unknown) (no (unknown) (unknown) [facility] (units (unknown) date) unknown) (unknown) (no (unknown) (unknown) [place] returns (units ( unknown) date) today for unknown) 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, 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 (unknown) (no (unknown) (unknown) Loc: [facility] (units (unkno wn) date) unknown) (unknown) (no (unknown) (unknown) Lower urinary (units ( unknown) date) tract symptoms unknown) (LUTS) (unknown) (no (unknown) (unknown) 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 (unknown) (no (unknown) (unknown) Medical History (units (unknown) date) (Updated 07/08/22 unknown) @ 16:31 by Jenny Evans MD) (unknown) (no (unknown) (unknown) Medications (units (un known) date) unknown) (unknown) (no (unknown) (unknown) Migraines (-2004) (units (unknown) date) unknown) (unknown) (no (unknown) (unknown) Mother (units (unkno wn) date) Hypertension unknown) (unknown) (no (unknown) (unknown) OFFICE CYSTOSCOPY (units (unknown) date) male: unknown) (unknown) (no (unknown) (unknown) Obesity (BMI (units (u nknown) date) 30-39.9) unknown) (unknown) (no (unknown) (unknown) Obstructive sleep (units (unknown) date) apnea, adult unknown) (unknown) (no (unknown) (unknown) Office Procedures (units (unknown) date) unknown) (unknown) (no (unknown) (unknown) Orders (units (unkno wn) date) unknown) (unknown) (no (unknown) (unknown) Orders: (units (unkno wn) date) unknown) (unknown) (no (unknown) (unknown) Oxygen Delivery (units (unknown) date) Method room air unknown) (unknown) (no (unknown) (unknown) PFSH (units (unkno wn) date) unknown) (unknown) (no (unknown) (unknown) POC Urine Dip (units ( unknown) date) Today R39.9 - unknown) Unspecified symptoms and signs involving the (unknown) (no (unknown) (unknown) Patient: (units (unkno wn) date) Indio Morales unknown) MR#: [id number] (unknown) (no (unknown) (unknown) Plan (units (unkno wn) date) unknown) (unknown) (no (unknown) (unknown) Polycystic (units (unk nown) date) kidney, adult type unknown) (-2006) (unknown) (no (unknown) (unknown) Position Sitting (units (unknown) date) unknown) (unknown) (no (unknown) (unknown) Procedure Notes: (units (unknown) date) unknown) (unknown) (no (unknown) (unknown) Procedure (units (unkn own) date) performed by: unknown) Mara Floyd (unknown) (no (unknown) (unknown) Prostate-3.5+ cm (units (unknown) date) length with mild unknown) lateral lobe hyperplasia. (unknown) (no (unknown) (unknown) Pulse 91 H (units (unk nown) date) unknown) (unknown) (no (unknown) (unknown) Pulse Oximetry (units (unknown) date) (%) 98 unknown) (unknown) (no (unknown) (unknown) Pulse Source (units (u nknown) date) Monitor unknown) (unknown) (no (unknown) (unknown) R39.9 - (units (unkno wn) date) Unspecified unknown) symptoms and signs involving the genitourinary system (unknown) (no (unknown) (unknown) ROS (units (unkno wn) date) unknown) (unknown) (no (unknown) (unknown) Reason For Visit (units (unknown) date) unknown) (unknown) (no (unknown) (unknown) Residual: post (units (unknown) date) void unknown) (unknown) (no (unknown) (unknown) Respiration 16 (units (unknown) date) unknown) (unknown) (no (unknown) (unknown) Results (units (unkno wn) date) unknown) (unknown) (no (unknown) (unknown) Review of (units (unkn own) date) clinical chart unknown) note history, patient data, operative intervention (unknown) (no (unknown) (unknown) Reviewed (units (unkno wn) date) findings, unknown) discussed impression, and discussed follow-up. (unknown) (no (unknown) (unknown) Shoulder pain (units ( unknown) date) () unknown) (unknown) (no (unknown) (unknown) Signed By: (units (unk nown) date) <Electronically unknown) signed by Jenny Evans MD> (unknown) (no (unknown) (unknown) Signed (units (unkno wn) date) unknown) (unknown) (no (unknown) (unknown) Sister PKD (units (unk nown) date) (polycystic kidney unknown) disease) (unknown) (no (unknown) (unknown) Smoking Status: (units (unknown) date) Former smoker unknown) (unknown) (no (unknown) (unknown) Snoring (units (unkno wn) date) unknown) (unknown) (no (unknown) (unknown) Social History (units (unknown) date) (Reviewed 07/08/22 unknown) @ 16:21 by Jenny Evans MD) (unknown) (no (unknown) (unknown) Status: Acute (units ( unknown) date) unknown) (unknown) (no (unknown) (unknown) Surgical History (units (unknown) date) (Reviewed 07/08/22 unknown) @ 16:21 by Jenny Evans MD) (unknown) (no (unknown) (unknown) The patient was (units (unknown) date) positioned supine unknown) and the lower abdomen, genitalia, and groin (unknown) (no (unknown) (unknown) This note may (units ( unknown) date) have been all or unknown) partially generated using voice recognition (unknown) (no (unknown) (unknown) Tobacco Status (units (unknown) date) unknown) (unknown) (no (unknown) (unknown) Unchanged normal (units (unknown) date) appearing adult unknown) external male genitalia. (unknown) (no (unknown) (unknown) Urethra-normal (units (unknown) date) caliber without unknown) annular stricture or lesion. (unknown) (no (unknown) (unknown) Urinalysis today (units (unknown) date) is clear. PVR is unknown) 139 cc. (unknown) (no (unknown) (unknown) Urine Appearance (units (unknown) date) Clear Last Edit by unknown) Mara Floyd RN on 07/08/22 14:37 (unknown) (no (unknown) (unknown) Urine Bilirubin (units (unknown) date) Negative Last Edit unknown) by Mara Floyd RN on 07/08/22 14:37 (unknown) (no (unknown) (unknown) Urine Blood (units (un known) date) Negative Last Edit unknown) by Mara Floyd RN on 07/08/22 14:37 (unknown) (no (unknown) (unknown) Urine Color (units (un known) date) Yellow Last Edit unknown) by Mara Floyd RN on 07/08/22 14:37 (unknown) (no (unknown) (unknown) Urine Dipstick (units (unknown) date) unknown) (unknown) (no (unknown) (unknown) Urine Glucose (units ( unknown) date) Negative mg/dL unknown) Last Edit by Mara Floyd RN on 07/08/22 14: (unknown) (no (unknown) (unknown) Urine Ketones (units ( unknown) date) Negative Last Edit unknown) by Mara Floyd RN on 07/08/22 14:37 (unknown) (no (unknown) (unknown) Urine Leukocyte (units (unknown) date) Esterase Negative unknown) Last Edit by Mara Floyd RN on (unknown) (no (unknown) (unknown) Urine Nitrate (units ( unknown) date) Negative Last Edit unknown) by Mara Floyd RN on 07/08/22 14:37 (unknown) (no (unknown) (unknown) Urine Protein (units ( unknown) date) Negative Last Edit unknown) by Mara Floyd RN on 07/08/22 14:37 (unknown) (no (unknown) (unknown) Urine Specific (units (unknown) date) [place] 1.020 Last unknown) Edit by Mara Floyd RN on 07/08/22 14 (unknown) (no (unknown) (unknown) Urine (units (unkno wn) date) Urobilinogen - 0.2 unknown) mg/dL Last Edit by Mara Floyd RN on (unknown) (no (unknown) (unknown) Urine pH 7.0 Last (units (unknown) date) Edit by Mara unknown) RENAE Floyd on 07/08/22 14:37 (unknown) (no (unknown) (unknown) Urology Office (units (unknown) date) Visit unknown) (unknown) (no (unknown) (unknown) Vertigo (-2004) (units (unknown) date) unknown) (unknown) (no (unknown) (unknown) Visit Reasons: (units (unknown) date) BTS Cysto,urine unknown) for cytology/PVR (unknown) (no (unknown) (unknown) Vitals (units (unkno wn) date) unknown) (unknown) (no (unknown) (unknown) Z85.51 - Personal (units (unknown) date) history of unknown) malignant neoplasm of bladder (unknown) (no (unknown) (unknown) alcohol intake: (units (unknown) date) current unknown) (unknown) (no (unknown) (unknown) amlodipine 10 mg (units (unknown) date) tablet 50 mg PO unknown) DAILY 11/21/21 [History Confirmed 07/08/22] (unknown) (no (unknown) (unknown) assistance lower (units (unknown) date) tract flexible unknown) endoscopy was performed with the findings as (unknown) (no (unknown) (unknown) atomoxetine 100 mg (units (unknown) date) capsule 100 mg PO unknown) DAILY 11/21/21 [History Confirmed 07/08/22] (unknown) (no (unknown) (unknown) ay occur. (units (unkn own) date) Occasional unknown) wrong-word or 'sound-alike' substitutions may have (unknown) (no (unknown) (unknown) bed overlying the (units (unknown) date) proximal left unknown) ureteric ridge. No evidence of recurrent (unknown) (no (unknown) (unknown) caffeine: Yes (units ( unknown) date) unknown) (unknown) (no (unknown) (unknown) cystoscopy in (units ( unknown) date) cytology since unknown) then. He denies interval new complaints. He is (unknown) (no (unknown) (unknown) cystoscopy. (units (un known) date) unknown) (unknown) (no (unknown) (unknown) described below. (units (unknown) date) unknown) (unknown) (no (unknown) (unknown) gabapentin 300 mg (units (unknown) date) capsule 300 mg PO unknown) DAILY 11/21/21 [History Confirmed 07/08/22] (unknown) (no (unknown) (unknown) genitourinary (units ( unknown) date) system unknown) (unknown) (no (unknown) (unknown) have occurred. If (units (unknown) date) there are any unknown) questions, please contact the Medical Records (unknown) (no (unknown) (unknown) history and (units (un known) date) pathology specific unknown) for encounter-10 minutes (unknown) (no (unknown) (unknown) household (units (unkn own) date) members: spouse unknown) (unknown) (no (unknown) (unknown) lisinopril 20 mg (units (unknown) date) tablet 30 mg PO unknown) DAILY 11/21/21 [History Confirmed 07/08/22] (unknown) (no (unknown) (unknown) marital status: (units (unknown) date) unknown) (unknown) (no (unknown) (unknown) methylphenidate (units (unknown) date) [From Concerta] unknown) Adverse Reaction (Unknown, Verified 07/08/22 (unknown) (no (unknown) (unknown) multivitamin 1 (units (unknown) date) tab PO DAILY unknown) 10/05/20 [History Confirmed 07/08/22] (unknown) (no (unknown) (unknown) neoplasm, stone, (units (unknown) date) or diverticulum. unknown) (unknown) (no (unknown) (unknown) new onset (units (unkn own) date) multiple unknown) sclerosis. In the interval he is now taken a job with (unknown) (no (unknown) (unknown) occurred due to (units (unknown) date) the inherent unknown) limitations of voice recognition software. Please (unknown) (no (unknown) (unknown) omega-3 fatty (units ( unknown) date) acids 1,000 mg PO unknown) DAILY 10/05/20 [History Confirmed 07/08/22] (unknown) (no (unknown) (unknown) read the note (units ( unknown) date) carefully and unknown) recognize, using context, where these substitutions (unknown) (no (unknown) (unknown) sertraline 25 mg (units (unknown) date) tablet (Zoloft) unknown) 100 mg PO DAILY 11/21/21 [History Confirmed (unknown) (no (unknown) (unknown) software. 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 He is had negative BTS (unknown) (no (unknown) (unknown) using a arm brace (units (unknown) date) cane for unknown) ambulation and balance now. He clarifies that his 7 (unknown) (no (unknown) (unknown) week in (units (unkno wn) date) hospitalization unknown) last year for presumed transverse myelitis, was actually (unknown) (no (unknown) (unknown) were prepped and (units (unknown) date) draped in sterile unknown) fashion. ?Using sterile technique and video Social History date description facility 2022-07-08 00:00 Ex-smoker ([facility] Vital Signs date measurement value units 2022-07-08 00:00 BP_diastolic 91 mmHg 2022-07-08 00:00 BP_systolic 128 mmHg 2022-07-08 00:00 heart_rate 91 /min 2022-07-08 00:00 o2_saturation 98 % 2022-07-08 00:00 respiration_rate 16 /min
--- NOTE | 2022-09-03 14:38 | ED Physician Documentation ---
PD HPI FOCAL NEURO - Stated complaint Stated Complaint: MALE ,LEG NUMBNESS - Chief complaint Chief Complaint: General - History obtained from History obtained from: Patient - History of Present Illness Timing - onset: How many days ago (2) Timing - duration: Days (2) Timing - details: Abrupt onset, Still present Severity of deficit: Moderate Weakness: Leg, Right, Left Numbness: Leg, Right, Left Associated symptoms: No: Headache, Nausea / vomiting, Chest pain Contributing factors: negative: Anticoagulated Baseline status: positive: A&OX3, ambulatory, indep. negative: Dementia Similar symptoms before: No diagnosis (has had this same change in sensaory/strength of legs, right more than left. Seen with workup including: labs, head cT, brain/spine mri, LP, and basic labs. Had possible initial diagnosis of transverse myelitis and treated with high dose steroids. Seen by neuro at in Jul, and had testing done.) Recently seen: Not recently seen (has not had these symptoms since last april 2022.) Review of Systems Constitutional: denies: Fever, Chills Nose: denies: Rhinorrhea / runny nose, Congestion Throat: denies: Sore throat Cardiac: denies: Chest pain / pressure Respiratory: denies: Dyspnea, Cough GI: denies: Abdominal Pain, Nausea, Vomiting, Diarrhea : denies: Dysuria, Frequency Skin: denies: Rash PD PAST MEDICAL HISTORY - Past Medical History Cardiovascular: Hypertension Respiratory: None Neuro: None, Multiple sclerosis (possible atypical with dx given at outpt with some sort of electrical conductive and tilt talbe type description. Pt states dx was of possible MS. No sigsn of active lesions on mRi.) Endocrine/Autoimmune: None : Other Psych: Depression, ADD/ADHD Musculoskeletal: Other (Dx possible transverse myelitis versus FND in September with persistent need for cane use and getting regular PT since. ) - Past Surgical History Past Surgical History: Yes - Present Medications Home Medications: Ambulatory Orders Medication Instructions Recorded Confirmed dexAMETHasone [Decadron] 60 mg PO DAILY 3 Days #30 tablet 04/07/22 dexAMETHasone [Decadron] 40 mg PO DAILY 3 Days #30 tablet 09/03/22 - Allergies Allergies/Adverse Reactions: Allergies Allergy/AdvReac Type Severity Reaction Status Date / Time methylphenidate AdvReac Unknown Verified 09/03/22 13:05 [From [employer]] - Social History Does the pt smoke?: No Smoking Status: Never smoker Does the pt drink ETOH?: No Does the pt have substance abuse?: No - Immunizations Immunizations are current?: Yes PD ED PE NORMAL - Vitals Vital signs reviewed: Yes - General General: Alert and oriented X 3, No acute distress, Well developed/nourished - Neck Neck: Supple, no meningeal sign, No adenopathy - Cardiac Cardiac: RRR, No murmur - Respiratory Respiratory: Clear bilaterally - Abdomen Abdomen: Normal bowel sounds, Soft, Non tender - Back Back: No spinal TTP, Other (normal sensation around rectal area. ) - Derm Derm: Normal color, Warm and dry - Extremities Extremities: No edema, No calf tenderness / cord, Other (no rash noted. He seems to have symmetric muscle exam upper and lower strength. 1+ reflexes at knees. ) Results - Vitals Vitals: Vital Signs - 24 hr 09/03/22 09/03/22 09/03/22 12:59 14:30 14:55 Temperature 36.0 C L Heart Rate 98 Respiratory 18 15 16 Rate Blood Pressure 160/101 H O2 Saturation 97 09/03/22 09/03/22 09/03/22 15:21 16:31 18:09 Temperature Heart Rate 89 Respiratory 17 16 19 Rate Blood Pressure 136/92 H O2 Saturation 94 09/03/22 19:13 Temperature Heart Rate Respiratory 16 Rate Blood Pressure O2 Saturation Oxygen O2 Source Room air - Labs Labs: Laboratory Tests 09/03/22 09/03/22 09/03/22 16:30 16:30 18:54 ESR 18 H Sodium 139 Potassium 4.2 Chloride 106 Carbon Dioxide 24 Anion Gap 9.0 BUN 15 Creatinine 1.2 Estimated GFR (MDRD) 67 L Glucose 107 H POC Whole Bld Glucose 115 H Calcium 9.1 Total Bilirubin 0.6 AST 21 ALT 22 Alkaline Phosphatase 61 Total Protein 7.0 Albumin 4.0 Globulin 3.0 Albumin/Globulin Ratio 1.3 Lipase 33 - Rads (name of study) lumbar MRI Radiology: Prelim report reviewed (given recurring symptoms with prior imaging of spine being about a year ago (has other neurophysiologic test for MS at that pt says was in Jul), did get MRI lumbar to look for other lesions/causes. no signs of abnormal new lesions. some disc abnormal same as prior.), See rad report PD Medical Decision Making - ED course Complexity details: reviewed old records (I looked at prior visit here records from apr and refreshed my memory of the visit. i had talked with neurology at [facility] and dx was of potential recurrent transverse myelitis versus functional neurologic disorder. He did feel greatly improved with steroid dosing 9within the time of the er visit). ), reviewed results, considered differential, d/w patient Departure - Departure Disposition: Home, Self Care Clinical Impression: Bilateral leg weakness Condition: Stable Record reviewed to determine appropriate education?: Yes Prescriptions: dexAMETHasone [Decadron] 40 mg PO DAILY 3 Days #30 tablet Comments: Your lumbar MRI did not show any obvious acute signal abnormalities. There is some mild degenerative disc problems at L5-S1. This was seen on priors as well. At this point we will presume a flareup of the atypical MS and go with the steroid dosing for 3 more days as well. I sent your prescription to your prefe ed pharmacy. Stay well-hydrated. Regular diet. Try to avoid sugary foods over the next week or so as the steroids will likely cause her sugar to go up. Discharge Date/Time: 09/03/22 19:13
[2022-09-03] MEDS: methylPREDNISolone SUCCINATE 500 MG in SODIUM CHLORIDE 0.9% 100ML 100 ML IV ONE (15:51)
[2022-09-03] MEDS ORDERED: GADOBUTROL 15 MMOL/15 ML VIAL ONE (16:30)
[2022-09-03 16:47] LABS: ALBUMIN/GLOBULIN RATIO 1.3 (1.0-2.2); BILIRUBIN,TOTAL 0.6 mg/dL (0.2-1.0); CALCIUM 9.1 mg/dL (8.5-10.3); CREATININE 1.2 mg/dL (0.6-1.2); POTASSIUM 4.2 mmol/L (3.5-5.0)
[2022-09-03] MEDS: GADOBUTROL 15 MMOL/15 ML VIAL IVP ONE (17:18)
[2022-09-03 18:10] VITALS: BP 136/92
--- NOTE | 2022-09-03 18:14 | MRI Report ---
PROCEDURE: LUMBAR SPINE W/WO INDICATIONS: leg numbness/weakness, ? MS/myelitis CONTRAST: GADAVIST 13.2 ML TECHNIQUE: Noncontrast sagittal T1 spin echo and T2 fast spin echo, sagittal STIR, axial T1 and T2 fast spin ech o through the lumbar spine. In cases with scoliosis, additional coronal T2 fast spin echo may be per formed. After the administration of contrast, sagittal and axial T1 spin echo with fat saturation th rough the lumbar spine. COMPARISON: Correlation is made with prior abdomen pelvis CT, 12/08/2020. FINDINGS: Image quality: Excellent. Alignment and curvature: There is mild retrolisthesis is seen at the L5-S1 level. Marrow: Marrow is of normal overall signal. No acute vertebral body compression fractures. No susp icious marrow enhancement. Spinal cord: Conus medullaris terminates at the L1 level. Visualized spinal cord demonstrates cleopatra l signal, without suspicious enhancement. Paraspinous soft tissues: No paravertebral masses or abnormal enhancement. Innumerable bilateral re nal cysts are again seen. T12-L1: Normal in appearance. L1-L2: Normal in appearance. L2-L3: Normal in appearance. L3-L4: No significant abnormality is seen. L4-L5: The disc height and disc signal are well preserved. Mild disc bulge is seen. Mild to mode rate facet hypertrophy is seen. There is mild to moderate left-sided and no right-sided neuroforamina l narrowing. No significant central canal narrowing is seen. L5-S1: Moderate loss of disc height and signal are seen. Reactive marrow endplate changes are seen , which are hyperintense on T1-weighted and T2-weighted imaging, without significant increased STIR s ignal. 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 Moder ate disc bulge is seen at this level. Mild facet hypertrophy is seen. Moderate to severe bilateral n eural foraminal narrowing can be seen, with associated compression upon the exiting nerve roots. Mod erate central canal narrowing is seen. IMPRESSION: Focal L5-S1 degenerative change can be seen. No abnormal enhancement can be seen. Additional findings: Innumerable simple appearing renal cysts Reviewed by: Bishnu Alva MD on 09/03/2022 5:12 PM AKST Approved by: Bishnu Alva MD on 09/03/2022 5:12 PM AK Station ID: [id number]
== END 2022-09-03 19:13 | disposition home or self-care (01) ==
LOC: ED 12:55
DX: R20.0 Anesthesia of skin (principal); F03.90 Unspecified dementia, unspecified severity, without behavioral disturbance, psychotic disturbance, mood disturbance, and anxiety; I10 Essential (primary) hypertension
CPT/HCPCS: 36415; 72158; 80053; 83690; 85651; 96365; 99284; A9585

== ENCOUNTER 2023-01-07 12:34 | Emergency (ER) | payer OTHER ==
--- NOTE | 2023-01-07 13:37 | ED Physician Documentation ---
History of Present Illness - Stated complaint Stated Complaint: BILAT LEG NUMBNESS - Chief complaint Chief Complaint: Ext Problem - Additonal information Additional information: Patient is 37-year-old male presenting to the emergency department with bilateral lower extremity limb weakness and numbness. Reports he has had the symptoms in the past. States he has had thorough evaluations of both [facility] and [facility] and was diagnosed with "MS, even though my MRIs have always been normal". Reports has been increasing numbness and weakness in his lower extremities for the last several days. Denies any other focal or la teralizing deficits. Denies any spinal trauma, fever, loss of bowel or bladder control. Review of Systems Constitutional: denies: Fever Eyes: denies: Loss of vision Ears: denies: Loss of hearing Nose: denies: Rhinorrhea / runny nose Throat: denies: Dental pain / toothache Cardiac: denies: Chest pain / pressure Respiratory: denies: Dyspnea GI: denies: Abdominal Pain : denies: Dysuria Skin: denies: Rash Neurologic: reports: Focal weakness, Numbness. denies: Generalized weakness, Difficulty speaking, Near syncope, Syncope, Seizure, Confused, Altered mental status, Unresponsive, Headache, Head injury, LOC, Reviewed and negative, Other PD PAST MEDICAL HISTORY - Past Medical History Cardiovascular: Hypertension Respiratory: None Neuro: None, Multiple sclerosis (possible atypical with dx given at outpt with some sort of electrical conductive and tilt talbe type description. Pt states dx was of possible MS. No sigsn of active lesions on mRi.) Endocrine/Autoimmune: None GI: None : Other HEENT: None Psych: Depression, ADD/ADHD Musculoskeletal: Other (Dx possible transverse myelitis versus FND in September with persistent need for cane use and getting regular PT since. ) Derm: None - Past Surgical History Past Surgical History: Yes - Present Medications Home Medications: Ambulatory Orders Medication Instructions Recorded Confirmed dexAMETHasone [Decadron] 60 mg PO DAILY 3 Days #30 tablet 04/07/22 dexAMETHasone [Decadron] 40 mg PO DAILY 3 Days #30 tablet 09/03/22 Ondansetron Odt [Zofran] 4 mg TL Q6H PRN #10 tablet 01/07/23 dexAMETHasone [Decadron] 40 mg PO DAILY 3 Days #30 tablet 01/07/23 - Allergies Allergies/Adverse Reactions: Allergies Allergy/AdvReac Type Severity Reaction Status Date / Time methylphenidate AdvReac Unknown Verified 01/07/23 12:47 [From [employer]] - Social History Does the pt smoke?: No Smoking Status: Never smoker Does the pt drink ETOH?: No Does the pt have substance abuse?: No - Immunizations Immunizations are current?: Yes - POLST Patient has POLST: No PD ED PE NORMAL - Vitals Vital signs reviewed: Yes (Tachycardic) - General General: Alert and oriented X 3, No acute distress, Well developed/nourished, Other (Obese) - HEENT HEENT: Atraumatic, PERRL, EOMI, Ears normal, Moist mucous membranes, Pharynx benign, Dentition benign - Neck Neck: Supple, no meningeal sign, No bony TTP, No adenopathy, Thyroid normal, No JVD, No bruit, C-Spine cleared by NEXUS criteria - Cardiac Cardiac: RRR, No murmur, No gallop, No rub, Strong equal pulses - Respiratory Respiratory: No respiratory distress, Clear bilaterally - Abdomen Abdomen: Normal bowel sounds, Non tender - Male Male : Deferred - Rectal Rectal: Deferred, Pt declined - Back Back: No spinal TTP - Derm Derm: Normal color - Extremities Extremities: No deformity, No tenderness to palpate, No edema, No calf tenderness / cord - Neuro Neuro: No motor deficit (Right lower extremity 3/5, left lower extremity 4/5.- Unable to assess patellar reflexes), Other (Subjective numbness to the lower extremities starting at approximately the proximal thigh bilaterally. Patient denies numbness or tingling in the anus or urogenital area.) - Psych Psych: Normal mood Results - Vitals Vitals: Vital Signs - 24 hr 01/07/23 01/07/23 12:41 14:38 Temperature 36.1 C L 36.5 C Heart Rate 121 H 100 Respiratory 19 16 Rate Blood Pressure 132/92 H 130/90 H O2 Saturation 97 98 Oxygen O2 Source Room air - Labs Labs: Laboratory Tests 01/07/23 01/07/23 01/07/23 13:48 13:48 13:48 WBC 7.6 RBC 5.31 Hgb 15.3 Hct 46.7 MCV 87.9 MCH 28.8 MCHC 32.8 RDW 12.7 Plt Count 282 MPV 9.7 Neut # (Auto) 5.0 Lymph # (Auto) 2.0 [place] # (Auto) 0.5 Eos # (Auto) 0.1 Baso # (Auto) 0.1 Absolute Nucleated RBC 0.00 Nucleated RBC % 0.0 ESR 12 PT 12.3 INR 1.1 Sodium Potassium Chloride Carbon Dioxide Anion Gap BUN Creatinine Estimated GFR (MDRD) Glucose Calcium Total Bilirubin AST ALT Alkaline Phosphatase Total Creatine Kinase C-Reactive Protein Total Protein Albumin Globulin Albumin/Globulin Ratio Lipase 01/07/23 13:48 WBC RBC Hgb Hct MCV MCH MCHC RDW Plt Count MPV Neut # (Auto) Lymph # (Auto) [place] # (Auto) Eos # (Auto) Baso # (Auto) Absolute Nucleated RBC Nucleated RBC % ESR PT INR Sodium 138 Potassium 4.2 Chloride 107 Carbon Dioxide 25 Anion Gap 6.0 BUN 21 H Creatinine 1.2 Estimated GFR (MDRD) 67 L Glucose 88 Calcium 9.1 Total Bilirubin 0.6 AST 22 ALT 26 Alkaline Phosphatase 60 Total Creatine Kinase 233 C-Reactive Protein 1.9 H Total Protein 7.5 Albumin 4.4 Globulin 3.1 Albumin/Globulin Ratio 1.4 Lipase 35 PD Medical Decision Making - ED course Complexity details: reviewed old records, reviewed results, re-evaluated patient, considered differential, d/w patient ED course: Patient 37-year-old male presenting to the emergency department with lower extremity weakness/numbness. Has had symptoms similar to this in the past. He reports a history of thorough evaluation at both [facility] and with the neurologic team at [facility]. Reported diagnosis of MS although he states that the diagnosis was not entirely clear asHis MRI images do not show typical MS style plaques. He attributes everything to a reaction from the COVID-vaccine he received approximately 1 year ago. Presented with subjective numbness and weakness in the lower extremities with subjective numbness that began at approximately the proximal thigh as well as notable weakness holding both legs against gravity, right greater than left as well as weakness with flexion and dorsiflexion of the feet bilaterally. I was unable to but types patellar tendons. Patient declined rectal exam and so rectal tone was not assessed. There was no specific spinal tenderness to palpation. Patient did report that in the past she has been treated with high-dose IV Decadron and I did give a dose of 20 mg IV Decadron here in the emergency department. Comprehensive labs did not demonstrate any significant elevation in ESR or electrolyte activity however he did have a very minimal Elevation in C-reactive protein. MRI demonstrated a new onset polycystic kidney disease however his renal function was well within normal limits. Additionally the MRI demonstrated some spinal stenosis as well as degenerative disc disease. I had a long and detailed discussion with the patient about his goals for his care at this time. He is adamant that he does not wish for hospitalization or transfer. It is his wish that we trial him on oral steroids once more as we have done in the past. In the interest of shared decision making I did explain that this would not be considered a standard treatment for his presenting symptoms and he verbalized understanding of this.In addition to this he verbalized understanding of the potential for loss of opportunity to treat, delaying definitive diagnosis and possible permanent loss of function. High-dose Decadron was sent to his preferred pharmacy as well as ondansetron. He was strongly encouraged to follow-up with his neurologist and primary care doctor or to return to the emergency department immediately for new or worsening symptoms. Departure - Departure Disposition: 01 Home, Self Care Clinical Impression: Lower extremity weakness, Polycystic kidney disease, Spinal stenosis, Degenerative disk disease Prescriptions: dexAMETHasone [Decadron] 40 mg PO DAILY 3 Days #30 tablet Ondansetron Odt [Zofran] 4 mg TL Q6H PRN #10 tablet PRN Reason: Nausea / Vomiting Comments: Thank you for allowing us to care for you today at [facility]. Today in the emergency department you were evaluated for any possible life- threatening medical emergency. A definitive cause of your lower extremity weakness was not identified in the emergency department today. As we discussed your studies did show some polycystic kidney disease however your kidney function is within appropriate limit at this time as well as some spinal stenosis and degenerative changes to your lower back. You are offered hospitalization/transfer as necessary to for further evaluation however you declined this intervention. As we discussed I have written a course of oral Decadron which will be sent to your preferred pharmacy, I do want you to follow-up with your primary care doctor and neurologist as soon as possible. If it anytime you have new or worsening symptoms please return to the emergency department.
[2023-01-07] MEDS ORDERED: DEXAMETHASONE 10 MG/ML VIAL IVP STA (13:39)
[2023-01-07] MEDS ORDERED: SODIUM CHLORIDE 0.9% 1,000 ML IV STA (13:39)
[2023-01-07 13:54] LABS: BASOPHILS # (AUTO) 0.1 10^3/uL (0.0-0.1); BASOPHILS % (AUTO) 0.7 %; EOSINOPHILS # (AUTO) 0.1 10^3/uL (0.0-0.7); EOSINOPHILS % (AUTO) 0.8 %; HCT - HEMATOCRIT 46.7 % (42.0-52.0); HGB - HEMOGLOBIN 15.3 g/dL (14.0-18.0); MEAN CORPUSCULAR HEMOGLOBIN 28.8 pg (27.0-31.0); MEAN CORPUSCULAR HGB CONC 32.8 g/dL (32.0-36.0); MEAN CORPUSCULAR VOLUME 87.9 fL (80.0-94.0); MEAN PLATELET VOLUME 9.7 fL (7.4-11.4); MONOCYTES # (AUTO) 0.5 10^3/uL (0.0-1.0); NEUTROPHILS % (AUTO) 65.2 %; PLT - PLATELET COUNT 282 10^3/uL (130-450); RED BLOOD COUNT 5.31 10^6/uL (4.70-6.10); RED CELL DISTRIBUTION WIDTH 12.7 % (12.0-15.0); WHITE BLOOD COUNT 7.6 x10^3/uL (4.8-10.8)
[2023-01-07 14:02] LABS: INR 1.1 (0.8-1.2); PT - PROTHROMBIN TIME 12.3 secs (9.9-12.6)
[2023-01-07 14:12] LABS: ALBUMIN 4.4 g/dL (3.2-5.5); ALBUMIN/GLOBULIN RATIO 1.4 (1.0-2.2); BILIRUBIN,TOTAL 0.6 mg/dL (0.2-1.0); CALCIUM 9.1 mg/dL (8.5-10.3); CREATININE 1.2 mg/dL (0.6-1.2); CRP - C-REACTIVE PROTEIN 1.9 mg/dL (0-1.0); POTASSIUM 4.2 mmol/L (3.5-5.0); TOTAL PROTEIN 7.5 g/dL (6.7-8.2)
[2023-01-07] MEDS ORDERED: GADOBUTROL 15 MMOL/15 ML VIAL ONE (15:41)
[2023-01-07] MEDS ORDERED: GADOBUTROL 15 MMOL/15 ML VIAL IVP ONE (15:53)
[2023-01-07] MEDS ORDERED: ONDANSETRON ODT 4 MG TABLET TL STA (16:26)
--- NOTE | 2023-01-07 16:45 | MRI Report ---
PROCEDURE: LUMBAR SPINE W/WO INDICATIONS: Acute Lower Extermity Wks/numbness CONTRAST: gadavist 13.3ml TECHNIQUE: Noncontrast sagittal T1 spin echo and T2 fast spin echo, sagittal STIR, axial T1 and T2 fast spin ech o through the lumbar spine. In cases with scoliosis, additional coronal T2 fast spin echo may be per formed. After the administration of contrast, sagittal and axial T1 spin echo with fat saturation th rough the lumbar spine. COMPARISON: 09/03/2022. FINDINGS: Image quality: Excellent. Alignment and curvature: 3 mm degenerative retrolisthesis of L5 on S1. Marrow: Marrow is of normal overall signal. No acute vertebral body compression fractures. No susp icious marrow enhancement. Spinal cord: Conus medullaris terminates at the L1 level. Visualized spinal cord demonstrates cleopatra l signal, without suspicious enhancement. Paraspinous soft tissues: No paravertebral masses or abnormal enhancement. Polycystic kidneys. T12-L1: Normal in appearance. L1-L2: Normal in appearance. L2-L3: Normal in appearance. L3-L4: Normal in appearance. L4-L5: Mild facet hypertrophy. No canal stenosis or foraminal stenosis. L5-S1: Mild retrolisthesis of L5 on S1. Posterior disc bulge. Facet hypertrophy. Epidural lipomatos is. Moderate canal stenosis. Moderate bilateral foraminal stenosis. IMPRESSION: 1. Adult onset polycystic kidney disease. 2. No abnormal enhancement with gadolinium. 3. Mild lower lumbar facet arthropathy. 4. At L5-S1, there is moderate canal stenosis and moderate bilateral foraminal stenosis. 5. No significant change in findings. Reviewed by: Magdi Beltran MD on 01/07/2023 4:43 PM PDT Approved by: Magdi Beltran MD on 01/07/2023 4:43 PM PDT Station ID: [id number]
[2023-01-07 17:42] VITALS: BP 129/93
== END 2023-01-07 17:41 | disposition home or self-care (01) ==
LOC: ED 12:34
DX: R29.898 Other symptoms and signs involving the musculoskeletal system (principal); Q61.3 Polycystic kidney, unspecified; M48.061 Spinal stenosis, lumbar region without neurogenic claudication; M51.36 Other intervertebral disc degeneration, lumbar region
CPT/HCPCS: 36415; 72158; 80053; 82550; 83690; 85025; 85610; 85651; 86140; 96374; 99284; A9585; Q0162

== ENCOUNTER 2023-01-13 14:45 | Emergency (ER) | payer OTHER ==
[2023-01-13 15:33] LABS: BASOPHILS % (AUTO) 0.1 %; EOSINOPHILS # (AUTO) 0.2 10^3/uL (0.0-0.7); EOSINOPHILS % (AUTO) 1.3 %; HCT - HEMATOCRIT 47.6 % (42.0-52.0); HGB - HEMOGLOBIN 15.9 g/dL (14.0-18.0); LYMPHOCYTES % (AUTO) 27.5 %; MEAN CORPUSCULAR HEMOGLOBIN 29.1 pg (27.0-31.0); MEAN CORPUSCULAR HGB CONC 33.4 g/dL (32.0-36.0); MEAN CORPUSCULAR VOLUME 87.2 fL (80.0-94.0); MEAN PLATELET VOLUME 9.7 fL (7.4-11.4); MONOCYTES # (AUTO) 0.9 10^3/uL (0.0-1.0); MONOCYTES % (AUTO) 6.3 %; NEUTROPHILS # (AUTO) 9.3 10^3/uL (1.5-6.6); NEUTROPHILS % (AUTO) 63.5 %; PLT - PLATELET COUNT 338 10^3/uL (130-450); RED BLOOD COUNT 5.46 10^6/uL (4.70-6.10); RED CELL DISTRIBUTION WIDTH 13.1 % (12.0-15.0); WHITE BLOOD COUNT 14.7 x10^3/uL (4.8-10.8)
[2023-01-13 16:07] LABS: ALBUMIN 3.6 g/dL (3.2-5.5); ALBUMIN/GLOBULIN RATIO 1.2 (1.0-2.2); BILIRUBIN,TOTAL 0.5 mg/dL (0.2-1.0); CALCIUM 8.6 mg/dL (8.5-10.3); CREATININE 1.4 mg/dL (0.6-1.2); CRP - C-REACTIVE PROTEIN 3.4 mg/dL (0-1.0); POTASSIUM 3.8 mmol/L (3.5-5.0); TOTAL PROTEIN 6.5 g/dL (6.7-8.2)
--- NOTE | 2023-01-13 16:38 | ED Physician Documentation ---
PD HPI FOCAL NEURO - Stated complaint Stated Complaint: ARM/LEG WEAKNESS - Chief complaint Chief Complaint: Neuro - History obtained from History obtained from: Patient - History of Present Illness Timing - onset: How many days ago (2) Timing - duration: Days (2) Timing - details: Gradual onset, Still present Severity of deficit: Moderate Weakness: Hand, Leg, Foot, Right, Left Numbness: Hand, Leg, Foot, Right Associated symptoms: No: Headache, Nausea / vomiting Contributing factors: negative: Anticoagulated Baseline status: positive: A&OX3, ambulatory, indep Similar symptoms before: Diagnosis (MS flare) Recently seen: Emergency Dept (6 days ago) - Additional information Additional information: Indio Morales is a 37-year-old male with a history of ADHD who has had some ascending paralysis last year and was admitted into the hospital for weeks. He was finally diagnosed with MS and he has had 2 flares of this that were arrested with the use of dexamethasone. He has his care split between the [place] [facility] group and [facility]y at the [facility]. Most of his care is given through the [facility]. He sees Dr. Weiss a neurologist there. He has not seen them in some time.He was seen in the emergency department here at [facility] on 07 January with ascending paralysis. He had ascending numbness as well. He was treated with 20 mg of dexamethasone intravenously and started on 40 mg/day for 3 days. He finished his dose 2 days ago and the following day began to develop symptoms.He states his symptoms are worse now than when he presented to the emergency department on the fifth. He has involvement in his upper extremities as well today stating that one of the reasons he came in this afternoon was he realized he could not squeeze his dogs toy ball. Review of Systems Constitutional: denies: Fever Ears: denies: Ear pain Nose: denies: Congestion Throat: denies: Sore throat Cardiac: denies: Chest pain / pressure, Palpitations Respiratory: denies: Dyspnea, Cough GI: denies: Abdominal Pain, Nausea, Vomiting, Constipation, Diarrhea : denies: Dysuria, Frequency Skin: denies: Rash Musculoskeletal: denies: Neck pain, Back pain, Extremity pain, Extremity swelling Neurologic: reports: Focal weakness, Numbness. denies: Generalized weakness, Difficulty speaking, Confused, Altered mental status, Headache, Head injury, LOC PD PAST MEDICAL HISTORY - Past Medical History Cardiovascular: Hypertension Respiratory: None Neuro: None, Multiple sclerosis (possible atypical with dx given at [facility] with some sort of electrical conductive and tilt talbe type description. Pt states dx was of possible MS. No sigsn of active lesions on mRi.) Endocrine/Autoimmune: None GI: None : Other HEENT: None Psych: Depression, ADD/ADHD Musculoskeletal: Other (Dx possible transverse myelitis versus FND in September with persistent need for cane use and getting regular PT since. ) Derm: None - Past Surgical History Past Surgical History: Yes - Present Medications Home Medications: Ambulatory Orders Medication Instructions Recorded Confirmed dexAMETHasone [Decadron] 60 mg PO DAILY 3 Days #30 tablet 04/07/22 dexAMETHasone [Decadron] 40 mg PO DAILY 3 Days #30 tablet 09/03/22 Ondansetron Odt [Zofran] 4 mg TL Q6H PRN #10 tablet 01/07/23 dexAMETHasone [Decadron] 40 mg PO DAILY 3 Days #30 tablet 01/07/23 - Allergies Allergies/Adverse Reactions: Allergies Allergy/AdvReac Type Severity Reaction Status Date / Time methylphenidate AdvReac Unknown Verified 01/13/23 14:50 [From [place]] - Social History Does the pt smoke?: No Smoking Status: Never smoker Does the pt drink ETOH?: No Does the pt have substance abuse?: No - Immunizations Immunizations are current?: Yes - POLST Patient has POLST: No PD ED PE NORMAL - Vitals Vital signs reviewed: Yes (hypertensive mild ) - General General: Alert and oriented X 3, No acute distress, Well developed/nourished - HEENT HEENT: Atraumatic, PERRL, EOMI - Neck Neck: Supple, no meningeal sign, No bony TTP - Cardiac Cardiac: RRR, No murmur - Respiratory Respiratory: No respiratory distress, Clear bilaterally - Abdomen Abdomen: Soft, Non tender - Back Back: No CVA TTP, No spinal TTP - Derm Derm: Normal color, Warm and dry, No rash - Extremities Extremities: No deformity, No edema - Neuro Neuro: Alert and oriented X 3, auditing specialist 2-12 intact, Other (unable to lift right foot off of bed. has dorsiflexion of toe with some strength. Left foot is able to lift off of bed. weakness to shipping inspector is present. ) Eye Opening: Spontaneous Motor: Obeys Commands Verbal: Oriented GCS Score: 15 - Psych Psych: Normal mood, Normal affect Results - Vitals Vitals: Vital Signs - 24 hr 01/13/23 01/13/23 01/13/23 14:50 16:39 18:00 Temperature 36.5 C Heart Rate 99 101 H 90 Respiratory 18 24 14 Rate Blood Pressure 131/84 H 144/99 H 134/84 H O2 Saturation 97 96 98 01/13/23 20:00 Temperature Heart Rate 80 Respiratory 16 Rate Blood Pressure 140/80 H O2 Saturation 98 Oxygen O2 Source Room air - Labs Labs: Laboratory Tests 01/13/23 01/13/23 15:22 15:22 WBC 14.7 H RBC 5.46 Hgb 15.9 Hct 47.6 MCV 87.2 MCH 29.1 MCHC 33.4 RDW 13.1 Plt Count 338 MPV 9.7 Neut # (Auto) 9.3 H Lymph # (Auto) 4.0 H [place] # (Auto) 0.9 Eos # (Auto) 0.2 Baso # (Auto) 0.0 Absolute Nucleated RBC 0.00 Nucleated RBC % 0.0 Sodium 138 Potassium 3.8 Chloride 107 Carbon Dioxide 22 Anion Gap 9.0 BUN 31 H Creatinine 1.4 H Estimated GFR (MDRD) 56 L Glucose 102 H Calcium 8.6 Total Bilirubin 0.5 AST 18 ALT 24 Alkaline Phosphatase 46 C-Reactive Protein 3.4 H Total Protein 6.5 L Albumin 3.6 Globulin 2.9 Albumin/Globulin Ratio 1.2 Lipase 65 H PD Medical Decision Making - ED course Complexity details: reviewed old records, reviewed results, re-evaluated patient, considered differential, d/w patient, d/w family, d/w consumer experience consultant (DR. Sweeney recommends follow up with neurology tomorrow by phone. The notes from work-up and treatment at [facility] in [place] indicates conversion reaction. with elevated inflamatory markers f/u is indicated. ) Reviewed Lab Results: We evaluated a complete blood count showing an elevated white blood cell count normal hemoglobin hematocrit and platelets chemistries are remarkable for normal electrolytes elevated BUN and creatinine consistent with potential dehydration and the known polycystic kidney disease. C-reactive protein elevated at 3.4 this is farther elevated than a specimen from 6 days ago. My interpretation of these laboratory studies are the patient appears to have progression of his symptoms to include inability to get up to get water. ED course: 37-year-old male with history of MS has exacerbation of his symptoms and he was seen in the emergency department 6 days ago and treated with IV dexamethasone followed by oral dexamethasone. The doses of these were 20 to 30 mg. He has previously been treated with Solu-Medrol 500 mg intravenously. I consulted Dr. Hernandez at the [facility] who recommended a dose of 1 g of Solu- Medrol for 3 to 5 days. He recommended we contact the neurologist treating the patient for further direction as medications and doses appear different than the usual for MS. [facility]. At shift change we have a page out to neurology in [place]. He was apparently hospitalized there at the onset of his symptoms and he saw about 6 neurologists from their group (patient recollection). The consultation indicates a need for followup and not specific treatment. He is discharge to followup as an outpatient. . Departure - Departure Disposition: 01 Home, Self Care Clinical Impression: Stress reaction Lower extremity weakness Qualifiers: Laterality: bilateral Qualified Code(s): R29.898 - Other symptoms and signs involving the musculoskeletal system Condition: Stable Instructions: Multiple Sclerosis, ED Stress React Follow-Up: ADRIA WEISS ARNP [Physician No Access] - Dr [facility] neurology [phone] [Other] Comments: [place], today we have been able to administer 1 g of Solu-Medrol intravenously. We found that you had an inflammatory marker your C-reactive protein elevated more today than it was 6 days ago. I have contacted the neurologist team that you saw when you were in [place] and they have recommended a follow-up with them tomorrow by telephone. They have not authorized further treatment as they are concerned about the possibility of a conversion reaction.
[2023-01-13] MEDS ORDERED: methylPREDNISolone SUCCINATE 500 MG in SODIUM CHLORIDE 0.9% 100ML 100 ML IV ONE ×3 (17:57→19:00)
[2023-01-13 20:32] VITALS: BP 140/80
== END 2023-01-13 20:47 | disposition home or self-care (01) ==
LOC: ED 14:45
DX: F43.9 Reaction to severe stress, unspecified (principal); M62.81 Muscle weakness (generalized); G35 Multiple sclerosis; I10 Essential (primary) hypertension
CPT/HCPCS: 36415; 80053; 83690; 85025; 86140; 96365; 96366; 99284

== ENCOUNTER 2023-07-23 21:49 | Outpatient (CLI) | payer OTHER | END 2023-07-23 23:59 | disposition critical access hospital (66) | LOC: EMS 21:49 | DX: R55 Syncope and collapse (principal); R07.89 Other chest pain | CPT/HCPCS: A0425; A0429 ==

== ENCOUNTER 2023-07-23 21:58 | Emergency (ER) | payer OTHER ==
[2023-07-23 22:11] LABS: BASOPHILS # (AUTO) 0.1 10^3/uL (0.0-0.1); BASOPHILS % (AUTO) 0.6 %; EOSINOPHILS # (AUTO) 0.2 10^3/uL (0.0-0.7); EOSINOPHILS % (AUTO) 2.1 %; HCT - HEMATOCRIT 43.5 % (42.0-52.0); LYMPHOCYTES # (AUTO) 3.2 10^3/uL (1.5-3.5); MEAN CORPUSCULAR HEMOGLOBIN 30.1 pg (27.0-31.0); MEAN CORPUSCULAR HGB CONC 34.5 g/dL (32.0-36.0); MEAN CORPUSCULAR VOLUME 87.2 fL (80.0-94.0); MONOCYTES # (AUTO) 0.6 10^3/uL (0.0-1.0); MONOCYTES % (AUTO) 6.4 %; NEUTROPHILS # (AUTO) 4.8 10^3/uL (1.5-6.6); NEUTROPHILS % (AUTO) 54.7 %; PLT - PLATELET COUNT 283 10^3/uL (130-450); RED BLOOD COUNT 4.99 10^6/uL (4.70-6.10); WHITE BLOOD COUNT 8.8 x10^3/uL (4.8-10.8)
--- NOTE | 2023-07-23 22:15 | ED Physician Documentation ---
History of Present Illness - Stated complaint Stated Complaint: CHEST PX/SYNCOPE - Chief complaint Chief Complaint: Cardiac - History obtained from History obtained from: Patient - History of Present Illness Timing: Today Pain level max: 2 Pain level now: 2 - Additonal information Additional information: Patient is a 38-year-old male with an extensive medical history. History of bladder cancer with cystoscopic resection. ADHD. Depression, hypertension, autosomal dominant polycystic kidney disease, anxiety. He has had an undiagnosed neurological problem, thought to be possible transverse myelitis but reviewing his progress notes from neurology appears that his MRI brain with and without, spine MRI with and without, lumbar MRI with and without, CSF studies, VDRL, Lyme antibody, BRANDEN level, IgG, MS panel, AQ P4 antibody, JUDY panel, ANCA panel, anti-SSA and anti-SSB, RF, HIV, syphilis, CRP and sed rate reportedly negative. Question of psychogenic nonepileptic seizures. Tonight he was at home with his when he had a syncopal episode. She states that he passes out regularly, but usually is only unconscious for 1 to 2 minutes, he was unconscious for about 8 to 10 minutes today. He wakes up after these events and is alert and oriented. Does not have a postictal period. He reportedly had chest pain prior to the event. He had a second "syncopal" event in the ambulance. 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 No arrhythmia. He reportedly has had an EEG that was reportedly normal as well. Patient describes the chest pain as "anvil sitting on his chest" feeling, especially when he takes a deep breath. Has not had similar symptoms previously. No fevers. Has had a cough. Does not use inhalers. He does vape, but states he does not use nicotine. Nonradiating. No change with exertion. No recent travel. No calf swelling. Review of Systems Constitutional: denies: Fever, Chills Respiratory: denies: Cough GI: denies: Vomiting, Diarrhea Skin: denies: Rash Musculoskeletal: denies: Neck pain, Back pain Neurologic: denies: Headache PD PAST MEDICAL HISTORY - Past Medical History Past Medical History: Yes Cardiovascular: Hypertension Respiratory: None Neuro: None, Multiple sclerosis Endocrine/Autoimmune: None GI: None : Other HEENT: None Psych: Depression, ADD/ADHD Musculoskeletal: Other Derm: None - Past Surgical History Past Surgical History: Yes - Present Medications Home Medications: Ambulatory Orders Medication Instructions Recorded Confirmed dexAMETHasone [Decadron] 60 mg PO DAILY 3 Days #30 tablet 04/07/22 dexAMETHasone [Decadron] 40 mg PO DAILY 3 Days #30 tablet 09/03/22 Ondansetron Odt [Zofran] 4 mg TL Q6H PRN #10 tablet 01/07/23 dexAMETHasone [Decadron] 40 mg PO DAILY 3 Days #30 tablet 01/07/23 - Allergies Allergies/Adverse Reactions: Allergies Allergy/AdvReac Type Severity Reaction Status Date / Time methylphenidate AdvReac Unknown Verified 07/23/23 22:00 [From Tweet Category] - Social History Does the pt smoke?: No Smoking Status: Never smoker Does the pt drink ETOH?: No Does the pt have substance abuse?: No - Immunizations Immunizations are current?: Yes - POLST Patient has POLST: No PD ED PE NORMAL - Vitals Vital signs reviewed: Yes - General General: Alert and oriented X 3, No acute distress - HEENT HEENT: PERRL, Moist mucous membranes - Neck Neck: Supple, no meningeal sign - Cardiac Cardiac: RRR, Strong equal pulses - Respiratory Respiratory: No respiratory distress, Clear bilaterally - Abdomen Abdomen: Soft, Non tender, Non distended - Back Back: No spinal TTP - Derm Derm: Warm and dry - Extremities Extremities: No edema - Neuro Neuro: Alert and oriented X 3, bowling ball assembler 2-12 intact, No motor deficit, No sensory deficit, Normal speech - Psych Psych: Normal mood, Normal affect Results - Vitals Vitals: Vital Signs - 24 hr 07/23/23 07/23/23 22:00 22:40 Temperature 36.5 C Heart Rate 70 76 Respiratory 18 18 Rate Blood Pressure 138/100 H O2 Saturation 96 Oxygen O2 Source Room air - EKG (time done) 9528 EKG releavant findings:: EKG personally interpreted by author of this note. Relevant findings are: Rate: Rate (enter#) (77) Rhythm: NSR [place]: Normal Intervals: Normal DE QRS: Normal Ischemia: ST elevation c/w repol - Labs Labs: Laboratory Tests 07/23/23 07/23/23 22:03 22:03 WBC 8.8 RBC 4.99 Hgb 15.0 Hct 43.5 MCV 87.2 MCH 30.1 MCHC 34.5 RDW 13.0 Plt Count 283 MPV 10.0 Neut # (Auto) 4.8 Lymph # (Auto) 3.2 [place] # (Auto) 0.6 Eos # (Auto) 0.2 Baso # (Auto) 0.1 Absolute Nucleated RBC 0.00 Nucleated RBC % 0.0 Sodium 136 Potassium 4.0 Chloride 107 Carbon Dioxide 25 Anion Gap 4.0 L BUN 18 Creatinine 1.3 Estimated GFR (MDRD) 61 L Glucose 88 Calcium 8.8 Total Bilirubin 0.5 AST 22 ALT 27 Alkaline Phosphatase 58 Troponin I High Sens 2.3 Total Protein 6.2 L Albumin 4.1 Globulin 2.1 Albumin/Globulin Ratio 2.0 Lipase 47 PD Medical Decision Making - ED course Complexity details: considered differential (No ST elevation OR, no aortic dissection, no PE, no tension pneumothorax, no aortic aneurysm), d/w patient ED course: Patient with chest pain, unclear etiology. Pending labs at the time of signout. He did receive a dose of Toradol and albuterol. He is well-appearing, nontoxic. Afebrile. No evidence of aortic dissection. Low risk for PE. Does have a complicated medical history with undiagnosed neurological issue. Apparently has recurrent episodes of syncope that are not related to arrhythmias and have no postictal period. There is a question of psychogenic nonepileptic seizures. Patient will be signed out to Dr. Alvarenga for follow-up on the current test, will at a minimum need to troponins as his pain started at approximately 9 PM this night. Departure - Departure Condition: Stable Forms: PCP List
[2023-07-23] MEDS ORDERED: KETOROLAC 30 MG/ML VIAL IVP STA (22:30)
[2023-07-23] MEDS ORDERED: ALBUTEROL NEB 2.5 MG/3 ML INH STA (22:31)
--- NOTE | 2023-07-23 22:40 | XRAY Report ---
PROCEDURE: Chest 1V INDICATIONS: Chest Pain TECHNIQUE: One view of the chest was acquired. COMPARISON: CXR 04/15/2021. FINDINGS: Surgical changes and devices: None. Lungs and pleura: No pleural effusions or pneumothorax. Lungs are clear. Mediastinum: Mediastinal contours appear normal. Heart size is normal. Bones and chest wall: No suspicious bony lesions. Overlying soft tissues appear unremarkable. IMPRESSION: No acute cardiopulmonary process identified. If clinically indicated consider follow-up upright two-view chest radiograph. Reviewed by: Yakov Fleming MD on 07/23/2023 10:38 PM PST Approved by: Yakov Fleming MD on 07/23/2023 10:38 PM PST Station ID: [id number]
[2023-07-23 22:44] LABS: ALBUMIN 4.1 g/dL (3.2-5.5)
[2023-07-23 22:54] LABS: TROPONIN I HIGH SENSITIVITY 2.3 ng/L (2.3-19.7)
[2023-07-23 22:55] LABS: BILIRUBIN,TOTAL 0.5 mg/dL (0.2-1.0); CALCIUM 8.8 mg/dL (8.5-10.3); CREATININE 1.3 mg/dL (0.6-1.3); TOTAL PROTEIN 6.2 g/dL (6.4-8.9)
[2023-07-24 00:48] VITALS: BP 131/67
--- NOTE | 2023-07-24 00:54 | ED Physician Documentation ---
ED Addendum - Addendum Addendum: 07/24/23 00:54 Patient endorsed to me by Dr. Strickland awaiting 2nd troponin. His cardiac monitoring has been normal in the ED. CBC, abdominal panel, trop unremarkable. CXR no acute cardiopulmonary disease per my interpretation and outside radiologist. ekg with ELIANA but otherwise unremarkable. Patient well appearing with normal neuro exam. Discussed return precautions. [facility]. Impression 1. chest pain 2. syncope Disposition home Condition stable
[2023-07-24 01:16] VITALS: O2SAT 99
== END 2023-07-24 01:00 | disposition home or self-care (01) ==
LOC: EDUNIT# → ED 21:58
DX: R55 Syncope and collapse (principal); R07.89 Other chest pain; R29.90 Unspecified symptoms and signs involving the nervous system; I10 Essential (primary) hypertension; F17.290 Nicotine dependence, other tobacco product, uncomplicated; Z85.51 Personal history of malignant neoplasm of bladder
CPT/HCPCS: 36415; 80053; 83690; 84484; 85025; 93005; 94640; 96374; 99284